=== PATIENT | male | born 1945 | race Caucasian/White ===

== ENCOUNTER 2020-05-06 08:52 | Inpatient (IN) | payer OTHER, MEDICARE, SELFPAY ==
[2020-05-06] VITALS (64 sets, daily range): BP systolic 136–201; BP diastolic 70–143; PULSE 60–122; RESP 10–36; TEMP 36.6; O2SAT 88–98; BMI 35.9
--- NOTE | 2020-05-06 08:58 | XR_ITS ---
WS: [id number] PORTABLE CHEST HISTORY: chest pain COMPARISON: None available. Prior CABG. Hyperinflated lungs. Diffuse coarsened thickened interstitial. No pleural effusion. No dense focal co nsolidation. No pleural effusion or pneumothorax. Cardiac size: Moderately enlarged cardiac silhouette. Mediastinum/Aorta: Mild atherosclerosis aorta. No osseous abnormality seen. XR/XR chest 1V portable [id number] IMPRESSION: 1. Severe diffuse interstitial thickening. No prior studies for comparison. Th justyna changes may all be due to severe pulmonary fibrosis which is chronic. Super imposed edema or only pulmonary congestion within the differential. 2. Marked cardiomegaly.
--- NOTE | 2020-05-06 08:58 | ECG_ITS ---
Measurements Intervals [place] Rate: 69 P: 56 MD: 184 QRS: 50 QRSD: 87 T: 2 QT: 352 QTc: [address] & T-WAVE ABNORMALITY No previous ECG available for comparison Electronically Signed On 05-06-2020 19:28:31 CDT by Juan David Palomino M.D. [id number]
--- NOTE | 2020-05-06 09:01 | W.ED.CHESTPA ---
HPI - Chest Pain General: Chief Complaint: Shortness of Breath/Dyspnea Stated Complaint: cp/sob Time Seen by Provider: 05/06/20 09:01 History of Present Illness: HPI narrative: 75 yo male presents emergency room with complaints of pain in his chest for the last week. Right now he rates it a 7 of 8 at its worst it was a 10 of 10. Worse when he exerts himself particularly by walking on arrival his O2 sat was 99% on room air on 3 L/min he goes up to 99%. He is not use any nitro he does take 2 baby aspirin daily though is not taking any today. His last angiogram was in July 2019 he said he had a stent placed that was in [place] he is not had any angiogram or evaluation locally he does see a local ID clinic but has not seen a sewer and cutter finger buff material in this area. States the pain radiates into his left arm and his left neck when he gets worse he had one episode last week where he had a few a day of loose stools but that resolved with some decw-vta-xenjmpt medications. He denies any fever sweats or chills or productive cough. He relates the pain has been increasing in intensity over the last week. MD complaint: chest pain Pertinent past history: coronary artery disease, prior [place], TOE TRIMMER and CABG Onset (ago): week(s) (1) Timing of current episode: episodic and increasing Prior episodes: Yes Onset: during exertion Pain location: substernal and left chest Pain radiation: left arm and neck Severity: similar to previous episodes Pain scale (0-10): 8 Quality: heaviness, sharp and similar to prior AZ Relieving factors: rest Exacerbating factors: exertion Context: other (Patient reports he recently ran out of 1 of his medications but is not sure the name) Associated symptoms: Reports diaphoresis, dyspnea, nausea and other (1 day of diarrhea); Deny vomiting Treatment prior to arrival: none Review of Systems Const: Reports: diaphoresis ENMT: Denies: throat pain, ear or mastoid pain, nasal discharge or nasal congestion Card: Denies: chest pain, edema, dyspnea on exertion or orthopnea Resp: Reports: dyspnea GI: Reports: nausea; Denies: vomiting : Denies: flank pain, dysuria, urinary frequency or urinary urgency Skin/Breast: Denies: rash or pruritus PFS ED PFSH: Medical History Congestive heart failure Coronary artery disease S/P CABG in 1999 & 6-7 stents since that time Hyperlipidemia Hypertension Tobacco abuse Surgical History History of cataract surgery Hx of CABG 1999, 1 vessel S/P PTCA (percutaneous transluminal coronary angioplasty) Patient reports 6-7 stents in the past. Last was performed in June 2019 in [place] Family History Daughter Hypertension Son Hypertension Denies family history of Dementia Social History Smoking and tobacco status: current every day smoker cigarettes Packs smoked per day: 0.5 Quit status (tobacco): not considering quitting Second hand smoke exposure: No Alcohol intake: never Desire information about alcohol rehabilitation?: No Desire information about substance/drug rehabilitation?: No History of recent travel: No Current gender identity: Male Physical Exam Const: GENERAL APPEARANCE: cooperative and comfortable NUTRITIONAL APPEARANCE: obese morbidly obese ORIENTATION/CONSCIOUSNESS: Yes awake, Yes oriented to person, Yes oriented to place and Yes oriented to time HENMT: COMMON NORMALS: normocephalic, atraumatic, hearing grossly normal bilaterally, external ears normal, EAC's normal, TM's normal bilaterally, Normal nasal mucous membranes and turbinates present, moist oral mucous membranes and oropharynx normal HEAD & SCALP: normocephalic and atraumatic NOSE: Normal nasal mucous membranes and turbinates present EXTERNAL EAR: Yes external ears normal EXTERNAL AUDITORY CANAL: EAC's normal TYMPANIC MEMBRANE: TM's normal bilaterally Eye: COMMON NORMALS: Equal, round and reactive pupils present, EOMs intact bilaterally, conjunctivae normal and no scleral icterus CONJUNCTIVA: Yes conjunctivae normal PUPIL: Yes Equal, round and reactive pupils present Neck/C-Spine: COMMON NORMALS: full ROM, no lymphadenopathy, supple and no JVD Lymph: LYMPHATIC: no lymphadenopathy noted and no lymphedema noted Resp: AUSCULTATION: crackles (At the bases) Laterality: bilateral, wheezes and diminished lung sounds Cardio: COMMON NORMALS: no JVD, regular rate, regular rhythm and No murmurs present (Cardio) RATE: regular rate RHYTHM: regular rhythm GI: COMMON NORMALS: Soft to palpation and No hepatosplenomegaly present AUSCULTATION: Yes normoactive bowel sounds PALPATION: Yes Soft to palpation, No Tenderness to palpation present (GI), No Guarding due to palpation present (GI) and Yes No hepatosplenomegaly present Extremity: COMMON NORMALS: normal to inspection, capillary refill normal, no clubbing, cyanosis or edema, no calf tenderness and no pedal edema Neuro: SENSORIUM/ORIENTATION: Yes oriented to person, Yes oriented to place and Yes oriented to time Skin: COMMON NORMALS: no rashes or lesions noted GENERAL SKIN EXAM: no rashes or lesions noted Course Vital Signs: Vital signs: Vital Signs Temperature 98 F 05/06/20 08:59 Pulse Rate 67 05/06/20 13:40 Respiratory Rate 14 05/06/20 13:40 Blood Pressure 178/104 05/06/20 13:30 Pulse Oximetry 90 05/06/20 13:40 MDM - Chest Pain MDM Narrative: Medical decision making narrative: Discussed with Dr. Mcnally. Given his history of coronary disease and episodes of chest pain will need to be admitted I think also benefit from some diuresis there does appear to be some underlying pulmonary interstitial fibrosis on his chest x-ray he was not able to give me much on history of that I do not think this is a new thing but old records will need to be reviewed. Dr. Mcnally seen the patient will assume care on the inpatient side. Lab Data: Labs: Lab Results 05/06/20 05/06/20 05/06/20 Range/Units 09:10 09:10 09:10 WBC 11.6 H (4.0-10.0) 10^3/ uL RBC 3.79 L (4.1-5.3) 10^6/u L Hgb 11.3 L (11.7-16.6) g/dL Hct 35.2 L (42.0-52.0) % MCV 92.9 (80-94) fL MCH 29.8 (28.0-34.0) pg MCHC 32.1 (30.0-36.0) g/dL RDW 14.4 (12.1-15.1) % Plt Count 293 (130-400) 10^3/c mm MPV 10.7 H (7.4-10.4) fL Neut % (Auto) 73.4 % Lymph % (Auto) 17.4 % [place] % (Auto) 7.7 % Eos % (Auto) 0.7 % Baso % (Auto) 0.4 % Neut # (Auto) 8.5 H (1.8-7.7) 10^3/u L Lymph # (Auto) 2.0 (0.8-4.8) 10^3/u L [place] # (Auto) 0.9 (0.2-0.9) 10^3/u L Eos # (Auto) 0.1 (0.0-0.8) 10^3/u L Baso # (Auto) 0.1 (0.0-0.1) 10^3/u L Nucleated RBC % (a uto) 0 % Nucleated RBCs # 0.0 /100WBC PT (10.5-13.3) SECO NDS INR (0.8-1.2) D-Dimer (0-0.59) ug/mIFE U Specimen Type Sample Site ABG pH (7.35-7.45) ABG pCO2 (35-45) mmHg ABG pO2 (80.0-100.0) mmH g ABG HCO3 (22-26) mmol/L ABG Base Excess (-2.0-2.0) mmol/ L Guillermo Test Hematocrit (42-52) % O2 Delivery Device O2 Liters/Min % FiO2 % Web Design Specialist ID Sodium 141 (136-145) mmol/L Potassium 3.3 L (3.5-5.1) mmol/L Chloride 101 (98-107) mmol/L Carbon Dioxide 29 (22-29) mmol/L Anion Gap 14.3 (5-19) BUN 15 (8-23) mg/dL Creatinine 0.7 (0.7-1.2) mg/dL Glucose 114 (65-115) mg/dL Calculated Osmolal ity 289 (285-295) mOsm/k g Calcium 9.2 (8.5-10.5) mg/dL Total Bilirubin 0.8 (0.15-1.2) mg/dL AST 19 (0-40) U/L ALT 18 (0-41) U/L Alkaline Phosphata se 101 (40-130) IU/L Troponin T Baselin e 24 H (0-15) ng/L Troponin T 120 Min [place] (0-15) ng/L Delta Troponin T (0-10) ABS# NT-Pro-B Natriuret Pep (0-125) pg/mL Total Protein 7.5 (6.6-8.7) g/dL Albumin 4.2 (3.5-5.2) g/dL Globulin 3.3 (1.3-4.6) g/dL TSH (0.27-4.20) uIU/ mL 05/06/20 05/06/20 05/06/20 Range/Units 09:10 09:10 09:10 WBC (4.0-10.0) 10^3/ uL RBC (4.1-5.3) 10^6/u L Hgb (11.7-16.6) g/dL Hct (42.0-52.0) % MCV (80-94) fL MCH (28.0-34.0) pg MCHC (30.0-36.0) g/dL RDW (12.1-15.1) % Plt Count (130-400) 10^3/c mm MPV (7.4-10.4) fL Neut % (Auto) % Lymph % (Auto) % [place] % (Auto) % Eos % (Auto) % Baso % (Auto) % Neut # (Auto) (1.8-7.7) 10^3/u L Lymph # (Auto) (0.8-4.8) 10^3/u L [place] # (Auto) (0.2-0.9) 10^3/u L Eos # (Auto) (0.0-0.8) 10^3/u L Baso # (Auto) (0.0-0.1) 10^3/u L Nucleated RBC % (a uto) % Nucleated RBCs # /100WBC PT 14.70 H (10.5-13.3) SECO NDS INR 1.11 (0.8-1.2) D-Dimer 1.77 H (0-0.59) ug/mIFE U Specimen Type Sample Site ABG pH (7.35-7.45) ABG pCO2 (35-45) mmHg ABG pO2 (80.0-100.0) mmH g ABG HCO3 (22-26) mmol/L ABG Base Excess (-2.0-2.0) mmol/ L Guillermo Test Hematocrit (42-52) % O2 Delivery Device O2 Liters/Min % FiO2 % Web Design Specialist ID Sodium (136-145) mmol/L Potassium (3.5-5.1) mmol/L Chloride (98-107) mmol/L Carbon Dioxide (22-29) mmol/L Anion Gap (5-19) BUN (8-23) mg/dL Creatinine (0.7-1.2) mg/dL Glucose (65-115) mg/dL Calculated Osmolal ity (285-295) mOsm/k g Calcium (8.5-10.5) mg/dL Total Bilirubin (0.15-1.2) mg/dL AST (0-40) U/L ALT (0-41) U/L Alkaline Phosphata se (40-130) IU/L Troponin T Baselin e (0-15) ng/L Troponin T 120 Min [place] (0-15) ng/L Delta Troponin T (0-10) ABS# NT-Pro-B Natriuret Pep 3568 H (0-125) pg/mL Total Protein (6.6-8.7) g/dL Albumin (3.5-5.2) g/dL Globulin (1.3-4.6) g/dL TSH (0.27-4.20) uIU/ mL 05/06/20 05/06/20 05/06/20 Range/Units 09:10 09:53 11:06 WBC (4.0-10.0) 10^3/ uL RBC (4.1-5.3) 10^6/u L Hgb (11.7-16.6) g/dL Hct (42.0-52.0) % MCV (80-94) fL MCH (28.0-34.0) pg MCHC (30.0-36.0) g/dL RDW (12.1-15.1) % Plt Count (130-400) 10^3/c mm MPV (7.4-10.4) fL Neut % (Auto) % Lymph % (Auto) % [place] % (Auto) % Eos % (Auto) % Baso % (Auto) % Neut # (Auto) (1.8-7.7) 10^3/u L Lymph # (Auto) (0.8-4.8) 10^3/u L [place] # (Auto) (0.2-0.9) 10^3/u L Eos # (Auto) (0.0-0.8) 10^3/u L Baso # (Auto) (0.0-0.1) 10^3/u L Nucleated RBC % (a uto) % Nucleated RBCs # /100WBC PT (10.5-13.3) SECO NDS INR (0.8-1.2) D-Dimer (0-0.59) ug/mIFE U Specimen Type Arterial Sample Site Radial, left ABG pH 7.44 (7.35-7.45) ABG pCO2 41.8 (35-45) mmHg ABG pO2 114.0 H (80.0-100.0) mmH g ABG HCO3 28.2 H (22-26) mmol/L ABG Base Excess 3.7 H (-2.0-2.0) mmol/ L Guillermo Test Pos Hematocrit 34.4 L (42-52) % O2 Delivery Device Nc O2 Liters/Min 2.0 % FiO2 28.0 % Web Design Specialist ID cak Sodium (136-145) mmol/L Potassium (3.5-5.1) mmol/L Chloride (98-107) mmol/L Carbon Dioxide (22-29) mmol/L Anion Gap (5-19) BUN (8-23) mg/dL Creatinine (0.7-1.2) mg/dL Glucose (65-115) mg/dL Calculated Osmolal ity (285-295) mOsm/k g Calcium (8.5-10.5) mg/dL Total Bilirubin (0.15-1.2) mg/dL AST (0-40) U/L ALT (0-41) U/L Alkaline Phosphata se (40-130) IU/L Troponin T Baselin e (0-15) ng/L Troponin T 120 Min [place] 23.33 H (0-15) ng/L Delta Troponin T -0.67 L (0-10) ABS# NT-Pro-B Natriuret Pep (0-125) pg/mL Total Protein (6.6-8.7) g/dL Albumin (3.5-5.2) g/dL Globulin (1.3-4.6) g/dL TSH 1.82 (0.27-4.20) uIU/ mL Discharge Plan Discharge Patient Disposition: Admitted As Inpatient Admit Provider: Sherine Mcnally Clinical Impression: Coronary artery disease, Chest pain, Congestive heart failure, Hyperlipidemia, Tobacco abuse, Interstitial pulmonary fibrosis Condition: Stable Discharge Date/Time: 05/06/20 12:30 Coding Level of Care Code ED Guidance Adviser for Chg Fwd Exam Comprehensive
[2020-05-06 09:18] LABS: Basophils # 0.1 10^3/uL (0.0-0.1); Basophils % 0.4 %; Eosinophils # 0.1 10^3/uL (0.0-0.8); Eosinophils % 0.7 %; Hematocrit 35.2 % (42.0-52.0); Hemoglobin 11.3 g/dL (11.7-16.6); Lymphocytes % 17.4 %; Mean Corpuscular HGB Conc 32.1 g/dL (30.0-36.0); Mean Corpuscular Hemoglobin 29.8 pg (28.0-34.0); Mean Corpuscular Volume 92.9 fL (80-94); Mean Platelet Volume 10.7 fL (7.4-10.4); Monocytes # 0.9 10^3/uL (0.2-0.9); Monocytes % 7.7 %; Neutrophils # 8.5 10^3/uL (1.8-7.7); Neutrophils % 73.4 %; Nucleated Red Blood Cells % 0 %; Platelet Count 293 10^3/cmm (130-400); Red Blood Count 3.79 10^6/uL (4.1-5.3); Red Cell Distribution Width 14.4 % (12.1-15.1); White Blood Count 11.6 10^3/uL (4.0-10.0)
[2020-05-06 09:33] LABS: Alanine Aminotransferase 18 U/L (0-41); Albumin Level 4.2 g/dL (3.5-5.2); Alkaline Phosphatase 101 IU/L (40-130); Anion Gap 14.3 (5-19); Aspartate Amino Transferase 19 U/L (0-40); Blood Urea Nitrogen 15 mg/dL (8-23); Calcium 9.2 mg/dL (8.5-10.5); Carbon Dioxide 29 mmol/L (22-29); Chloride 101 mmol/L (98-107); Creatinine Clr Calc Pharmacy 103.7095; Globulin 3.3 g/dL (1.3-4.6); Glucose 114 mg/dL (65-115); Osmolality Calculated 289 mOsm/kg (285-295); Potassium 3.3 mmol/L (3.5-5.1); Sodium 141 mmol/L (136-145); Total Bilirubin 0.8 mg/dL (0.15-1.2); Total Protein 7.5 g/dL (6.6-8.7)
[2020-05-06 09:34] LABS: Troponin(5th) Baseline 24 ng/L (0-15)
[2020-05-06 10:04] LABS: ABG PCO2 41.8 mmHg (35-45); ABG PH Result 7.44 (7.35-7.45); Arterial Blood Gas Hematocrit 34.4 % (42-52); Base Excess ABG 3.7 mmol/L (-2.0-2.0); Blood Gas Allen Test Pos; Blood Gas Sample Site Radial, left; Blood Gas Sample Type Arterial; HCO3 ABG 28.2 mmol/L (22-26); Oxygen Device NC
[2020-05-06] MEDS: FUROsemide 10 mg/mL SDV 10mL 60 MG IVP (10:15)
[2020-05-06 10:16] LABS: NT Pro B Type Natriuretic Pept 3568 pg/mL (0-125)
[2020-05-06] MEDS: nitroglycerin 1 gm/inch oint Pkt 1 INCH TOPICAL (10:16)
[2020-05-06] MEDS: aspirin 325 mg Tablet PO (10:16)
[2020-05-06 10:55] LABS: D Dimer 1.77 ug/mIFEU (0-0.59)
--- NOTE | 2020-05-06 10:58 | ECG_ITS ---
Measurements Intervals [place] Rate: 69 P: 63 AL: 174 QRS: 44 QRSD: 98 T: -14 QT: 415 QTc: 446 SINUS RHYTHM WITH OCCASIONAL VENTRICULAR PREMATURE COMPLEXES NONSPECIFIC ST & T-WAVE ABNORMALITY No previous ECG available for comparison Electronically Signed On 05-06-2020 19:31:02 CDT by Juan David Palomino M.D. [email or web address]
--- NOTE | 2020-05-06 11:02 | PM.HP ---
Providers/Chief Complaint Admitting Physician: Sherine Mcnally DO Chief Complaint: cp/sob History of Present Illness Yohannes La is a 75 year old male with a past medical history of hypertension and coronary artery disease as well as tobacco use that presented to the emergency department today for chest pain and shortness of breath. Patient stated that he has been having symptoms that have been progressively worsening over the past 1 week. Patient reports that he is having increasing dyspnea on exertion and worsening chest pain with any type of exertion. He stated that he has been unable to walk throughout his home without having to stop to take a break. Typically when he stops to take a break he will have improvement in symptoms. He reports having a history of coronary artery disease with a one-vessel bypass in 1999 followed by approximately 6-7 stents since that time. Reported that his last stent was placed in May or June 2019 in a hospital in [place]. Patient reports that he recently moved here in November, has now set up with a primary care provider but does not have any cardiology follow-up. Patient denies any fevers at home. He reports that he has been out and about in his community but has not had any known exposure to anyone positive for CO VID-19. He reports that he has a chronic cough and sputum production due to smoking, cough and sputum production have been roughly the same when compared to his baseline. Patient was seen and evaluated in the emergency department noted to have concern for chest pain with a history of coronary artery disease and some concern for congestive heart failure. Patient denies any history of congestive heart failure diagnosis in the past. He denies any history of interstitial pulmonary fibrosis. He was given Lasix x1 and started on Nitropaste. At time of my exam he reports that he is chest pain-free. Called and discussed with patient's daughter and made her aware of patient's admission, Kecia Carmichael, she reported that patient has been having symptoms for approximately 1 week. She verbalized understanding of plan of care and agreed with plan. Review of Systems Const: Denies: fever(s) or chills Eyes: Denies: change in vision ENMT: Denies: nasal congestion Card: Reports: chest pain; Denies: palpitations or edema Resp: Reports: dyspnea and productive cough; Denies: hemoptysis GI: Denies: abdominal pain, nausea, vomiting, diarrhea, constipation, hematochezia or melena : Denies: dysuria or hematuria Musc: Denies: extremity pain or muscle cramps Skin/Breast: Denies: rash or new lesions Neuro: Denies: headache(s) or dizziness Psych: Denies: anxiety or depression Endo: Denies: polyuria or hot flashes Sebastián/Lymph: Denies: easy bruising or easy bleeding Medications/Allergies Home Medications Medication Instructions Recorded Confirmed Last Taken Type hydrochlorothiazide 25 mg tablet 25 mg PO DAILY 02/05/20 02/29/20 Unknown History lisinopril 40 mg tablet 40 mg PO DAILY 02/05/20 02/29/20 Unknown History simvastatin 80 mg tablet 40 mg PO DAILY tab 02/05/20 02/29/20 Unknown History albuterol sulfate [ProAir HFA] 1 inh INHALATION QID PRN 05/06/20 05/06/20 Unknown History aspirin 81 mg PO DAILY 05/06/20 05/06/20 05/06/20 History budesonide-formoterol [Symbicort] 2 puff INHALATION BID 05/06/20 05/06/20 Unknown History carvedilol 25 mg PO BID 05/06/20 05/06/20 05/06/20 History clopidogrel [Plavix] 75 mg PO DAILY 05/06/20 05/06/20 05/06/20 History hydralazine 25 mg PO TID 05/06/20 05/06/20 05/06/20 History omeprazole 40 mg PO DAILY 05/06/20 05/06/20 05/06/20 History sertraline 100 mg PO DAILY 05/06/20 05/06/20 05/06/20 History vit C,O-Mn-ycrig-lutein-zeaxan 1 tab PO BID 05/06/20 05/06/20 05/06/20 History [PreserVision AREDS-2] Allergies Allergy/AdvReac Type Severity Reaction Status Date / Time No Known Allergies Allergy Verified 05/06/20 09:03 PFSH Acute PFSH: Medical History Congestive heart failure Coronary artery disease S/P CABG in 1999 & 6-7 stents since that time Hyperlipidemia Hypertension Tobacco abuse Surgical History History of cataract surgery Hx of CABG 1999, 1 vessel S/P PTCA (percutaneous transluminal coronary angioplasty) Patient reports 6-7 stents in the past. Last was performed in June 2019 in [place] Family History Daughter Hypertension Son Hypertension Denies family history of Dementia Social History Smoking and tobacco status: current every day smoker cigarettes Packs smoked per day: 0.5 Quit status (tobacco): not considering quitting Second hand smoke exposure: No Alcohol intake: never Desire information about alcohol rehabilitation?: No Desire information about substance/drug rehabilitation?: No History of recent travel: No Current gender identity: Male Vitals/I&O/Wt Last Vital Signs Temp 98 F 05/06/20 08:59 Pulse 71 05/06/20 08:59 Resp 32 H 05/06/20 08:59 BP 177/95 05/06/20 08:59 Pulse Ox 93 05/06/20 08:59 Weight last 48 hrs Weight 113.398 kg Physical Exam Const: COMMON NORMALS: patient oriented x3 and alert GENERAL APPEARANCE: cooperative ORIENTATION/CONSCIOUSNESS: Yes awake, Yes oriented to person, Yes oriented to place and Yes oriented to time HENMT: COMMON NORMALS: normocephalic and atraumatic HEAD & SCALP: normocephalic and atraumatic Eye: COMMON NORMALS: Equal, round and reactive pupils present PUPIL: Yes Equal, round and reactive pupils present Neck/C-Spine: COMMON NORMALS: supple GENERAL: Yes normal visual inspection Resp: COMMON NORMALS: normal respiratory effort EFFORT & INSPECTION: Yes able to speak in complete sentences OTHER: bibasilar crackles Cardio: COMMON NORMALS: regular rate, regular rhythm and No murmurs present (Cardio) RATE: regular rate RHYTHM: regular rhythm GI: COMMON NORMALS: Soft to palpation and non-tender INSPECTION: No abdominal distension AUSCULTATION: Yes normoactive bowel sounds PALPATION: Yes Soft to palpation : COMMON NORMALS: Yes no CVA tenderness Back/Pelvis: COMMON NORMALS: no CVA tenderness Extremity: COMMON NORMALS: no clubbing, cyanosis or edema and no calf tenderness Neuro: COMMON NORMALS: patient oriented x3, CN's II-XII intact bilaterally, moves all extremities and no focal motor deficits SENSORIUM/ORIENTATION: Yes alert, Yes oriented to person, Yes oriented to place and Yes oriented to time SPEECH: speech normal Psych: COMMON NORMALS: mental status grossly normal and cooperative Skin: COMMON NORMALS: no rashes or lesions noted GENERAL SKIN EXAM: no rashes or lesions noted Data : 05/06/20 09:10 05/06/20 09:10 A&P Assessment and plan (1) Chest pain: Patient has typical anginal symptoms. Will discuss with business management consultant on-call Patient has a history of coronary artery disease status post one-vessel CABG and multiple stents in the past. Last coronary angiogram was in May or June 2019 in [place]. Will enter for record request. Serial EKG and troponin. Monitor closely on telemetry. Sublingual nitro as needed for chest pain We will continue to monitor result from second troponin if significant delta will discuss with cardiology for cardiac cath. ALAN as needed for pain Patient also has significant fluid overload on chest x-ray which could be contributing to some of his symptoms. Given IV Lasix in the ED. Echocardiogram ordered for further evaluation and will continue with diuresis. Status: Acute (2) Congestive heart failure: Unspecified No prior diagnosis of congestive heart failure, however patient appears to be volume overloaded at time of evaluation in the ED, given 60 mg of Lasix IV x1 and is already had greater than 500 mL of urine output Will continue with diuresis Strict intake and output as well as daily weights Echocardiogram ordered for further evaluation Patient already on LUCRETIA inhibitor, continue home beta ariel Status: Acute (3) Coronary artery disease: Status post CABG and reported history of multiple stents placed in the past. Further plan as above. Status: Acute (4) Hyperlipidemia: Would recommend increasing to high intensity statin Status: Acute (5) Tobacco abuse: Strongly encourage cessation, nicotine patch as needed Status: Acute Additional A&P Information Cough/shortness of breath/bilateral findings on CXR: patient was tested for COVID-19 while in the ED. remains on droplet and contact precautions until results return. No personal contact with positive individual however patient has been out and about in the community. Would recommend outpatient pulmonary function testing as likely patient has underlying COPD. Also concern based on chest x-ray for some interstitial pulmonary fibrosis. D-dimer ordered for further evaluation, consider CTA of the chest if indicated. Continue oxygen per protocol, respiratory therapy to assess and treat, goal oxygen saturation of 90 to 92%. Obstructive sleep apnea: Continue home CPAP Obesity Testing for CO VID-19: Remains on droplet and isolation precautions, infection prevention department consulted while patient was in the ED. DVT ppx: Lovenox Diet: Cardiac, NPO at midnight Code status: FUll code Attestations Medical Necessity Statement*: Placement to observation for further evaluation due to dyspnea and chest pain. Expected stay less than 2 midnights Coding Level of Care Code Acute Unemployment Inspector for Seema Quach Diagnoses Chest pain R07.9 Congestive heart failure I50.9 Coronary artery disease I25.10 Hyperlipidemia E78.5 Tobacco abuse Z72.0
--- NOTE | 2020-05-06 11:14 | PC.NURSE ---
pt sitting up in bed at this time.
[2020-05-06 11:33] LABS: Troponin 5 2HR 23.33 ng/L (0-15)
[2020-05-06 11:36] LABS: Troponin 5 2HR Delta -0.67 ABS# (0-10)
--- NOTE | 2020-05-06 12:40 | PC.NURSE ---
COVID SWAB COVID Swab taken and COVID precautions initiated.
[2020-05-06 13:26] LABS: INR 1.11 (0.8-1.2)
[2020-05-06 13:52] LABS: Thyroid Stimulating Hormone 1.82 uIU/mL (0.27-4.20)
[2020-05-06] MEDS: hyDRALAzine 25 mg Tablet PO ×2 (14:02→21:40)
[2020-05-06] MEDS: nicotine 21 mg Patch 1 PATCH TRANSDERMA (14:02)
[2020-05-06] MEDS: enoxaparin 40 mg/0.4 mL Syringe SUBCUT (14:02)
--- NOTE | 2020-05-06 14:58 | ECG_ITS ---
Measurements Intervals [place] Rate: 75 P: CO: 0 QRS: 38 QRSD: 90 T: 25 QT: 393 QTc: [address] & T-WAVE ABNORMALITY ABNORMAL RHYTHM ECG No previous ECG available for comparison Electronically Signed On 05-06-2020 19:31:47 CDT by Juan David Palomino M.D. [id number]
[2020-05-06] MEDS: albuterol 8 gm MDI 1 PUFF INHALATION (15:05)
[2020-05-06 16:18] LABS: Troponin 5 6HR 21.77 ng/L (0-15)
[2020-05-06 16:33] LABS: Troponin 5 6HR Delta -2.23 ng/L (0-12)
[2020-05-06] MEDS: carvedilol 25 mg Tablet PO (18:08)
[2020-05-07] VITALS (10 sets, daily range): BP systolic 104–220; BP diastolic 67–110; PULSE 64–86; RESP 16–24; TEMP 36.6–36.8; O2SAT 92–97; BMI 36.9
[2020-05-07 04:42] LABS: Basophils # 0.1 10^3/uL (0.0-0.1); Basophils % 0.5 %; Eosinophils # 0.2 10^3/uL (0.0-0.8); Eosinophils % 1.9 %; Hematocrit 34.7 % (42.0-52.0); Hemoglobin 11.2 g/dL (11.7-16.6); Lymphocytes # 1.9 10^3/uL (0.8-4.8); Lymphocytes % 16.8 %; Mean Corpuscular HGB Conc 32.3 g/dL (30.0-36.0); Mean Corpuscular Hemoglobin 29.9 pg (28.0-34.0); Mean Corpuscular Volume 92.5 fL (80-94); Monocytes # 0.9 10^3/uL (0.2-0.9); Monocytes % 8.2 %; Neutrophils # 8.1 10^3/uL (1.8-7.7); Neutrophils % 72.1 %; Nucleated Red Blood Cells % 0 %; Platelet Count 314 10^3/cmm (130-400); Red Blood Count 3.75 10^6/uL (4.1-5.3); Red Cell Distribution Width 14.3 % (12.1-15.1); White Blood Count 11.3 10^3/uL (4.0-10.0)
[2020-05-07 05:05] LABS: Chol HDL Ratio 3.45 mg/dL (1.0-5.00); Cholesterol 107 mg/dL (0-200); HDL Cholesterol 31 mg/dL (60-100); LDL Cholesterol Calculated 58 mg/dL (50-129); LDL HDL Ratio 1.87 RATIO (0.00-3.22); Triglycerides 90 mg/dL (0-150)
[2020-05-07 05:06] LABS: Anion Gap 17.2 (5-19); Blood Urea Nitrogen 13 mg/dL (8-23); Calcium 10.1 mg/dL (8.5-10.5); Carbon Dioxide 29 mmol/L (22-29); Chloride 99 mmol/L (98-107); Glucose 107 mg/dL (65-115); Osmolality Calculated 291 mOsm/kg (285-295); Potassium 3.2 mmol/L (3.5-5.1); Sodium 142 mmol/L (136-145)
--- NOTE | 2020-05-07 06:11 | PC.NURSE ---
End of shift: Patient had a uneventful shift. Patient was unable to get his CPAP due to covid screening results not coming back. Lexiscan scheduled test will be run whenever results are back. Patient rested off and on. Patients vitals have been stable.
--- NOTE | 2020-05-07 07:00 | USCV_ITS ---
Yohannes La Age: 75 Gender: M : 1945 Exam Date: 05/07/2020 15:56 Ordering Phys: Sherine Mcnally DO Technologist: Latasha Moore [place]am [place] [facility] [place] Indication: CAD,CHF BP: 184 / 110 HR: 80 Rhythm: Sinus Technical Quality: Very technically difficult study MEASUREMENTS (Male / Female) Normal Values 2D ECHO LV Diastolic Diameter PLAX 5.4 cm 4.2 - 5.9 / 3.9 - 5.3 cm LV Systolic Diameter PLAX 3.8 cm LV Chamber Size 2.9 cm IVS Diastolic Thickness 1.4 cm 0.6 - 1.0 / 0.6 - 0.9 cm IVS Systolic Thickness 1.4 cm LVPW Diastolic Thickness 2.0 cm 0.6 - 1.0 / 0.6 - 0.9 cm LVPW Systolic Thickness 2.2 cm RV Chamber Size 3.8 cm LVOT Diameter 2.0 cm LV Ejection Fraction 2D Teich 54.9 % LV Ejection Fraction MOD 2C 49.6 % LV Ejection Fraction 2C AL 53.9 % LA Diameter 6.2 cm LA Width 4.2 cm LA Height 6.3 cm RA Width 3.2 cm RA Height 4.6 cm M-MODE LV Diastolic Diameter MM 6.3 cm 4.2 - 5.9 / 3.9 - 5.3 cm LV Systolic Diameter MM 4.3 cm LV Ejection Fraction MM Teich 58.3 % IVS Diastolic Thickness MM 1.1 cm 0.6 - 1.0 / 0.6 - 0.9 cm IVS Systolic Thickness MM 1.4 cm LVPW Diastolic Thickness MM 1.1 cm 0.6 - 1.0 / 0.6 - 0.9 cm LVPW Systolic Thickness MM 1.5 cm Aortic Annulus Diameter 2.9 cm LA Ao Ratio MM 2.2 MV E Point Septal Separation 0.8 cm DOPPLER AV Peak Velocity 150.0 cm/s LVOT Peak Velocity 120.0 cm/s AV Area Cont Eq vti 2.7 cm squared AV Area Cont Eq pk 2.5 cm squared MV Area PHT 2.9 cm squared Mitral E to A Ratio 1.2 MV E' Velocity 11.0 cm/s Mitral E to MV E' Ratio 7.2 Mitral E to LV E' Lateral Ratio 7.8 Mitral E to LV E' Septal Ratio 6.7 TR Peak Velocity 290.0 cm/s TR Peak Gradient 33.6 mmHg Right Atrial Pressure 3.0 mmHg Pulmonary Artery Systolic Pressu 36.6 mmHg PV Peak Velocity 64.0 cm/s RV Acceleration Time 0.2 s RV Ejection Time 0.4 s RV AcT/ET 0.5 FINDINGS Left Ventricle The ventricle is poorly seen. There is likely normal left ventricular size and function. Wall motion disturbances cannot be determined. No obvious wall motion disturbances. Grade 1 diastolic dysfunction. Ejection fraction roughly estimated 55 to 60%. Right Ventricle Normal right ventricular size and systolic function. Mild pulmonary hypertension, RVSP 36.6 mmHg. Right Atrium Mildly increased right atrial size. Left Atrium Moderately increased left atrial size. Mitral Valve Poorly seen. No obvious mitral regurgitation. Aortic Valve Poorly seen. No aortic stenosis. No obvious aortic insufficiency. Tricuspid Valve Poorly seen. Mild tricuspid regurgitation. Pulmonic Valve Pulmonic valve not well visualized. Pericardium Normal pericardium without effusion. Aorta Normal ascending aorta dimension. CONCLUSIONS The ventricle is poorly seen. There is likely normal left ventricular size and function. Wall motion disturbances cannot be determined. No obvious wall motion disturbances. Grade 1 diastolic dysfunction. Ejection fraction roughly estimated 55 to 60%. Normal right ventricular size and systolic function. Mild pulmonary hypertension, RVSP 36.6 mmHg. Mildly increased right atrial size. Moderately increased left atrial size. There are no prior echocardiogram studies to compare. Dr. Tam Cornell MD (Electronically Signed) Final Date: 08 May 2020 06:56 S
--- NOTE | 2020-05-07 07:49 | PC.NURSE ---
ORDERED TO GIVE HYDRALAZINE, POTASSIUM, LASIX, LISINOPRIL AND HCTZ THIS MORNING PER DR PINEDA FOR INCREASED BLOOD PRESSURE.
[2020-05-07] MEDS: FUROsemide 10 mg/mL SDV 4mL 60 MG IVP (07:56)
[2020-05-07] MEDS: hyDRALAzine 25 mg Tablet PO ×3 (07:57→21:18)
[2020-05-07] MEDS: hydroCHLOROthiazide 25 mg Tablet PO (07:57)
[2020-05-07] MEDS: lisinopril 20 mg Tablet 40 MG PO (07:57)
--- NOTE | 2020-05-07 08:00 | CTR_ITS ---
PROCEDURE INFORMATION: Exam: CT Angiography Chest With Contrast Exam date and time: 05/07/2020 7:09 AM Age: 75 years old Clinical indication: Shortness of breath; Chest pain; Prior surgery; Surgery type: Open heart; Additional info: Chest pain, dyspnea, cad, elevated d-dimer, hypoxia TECHNIQUE: Imaging protocol: Computed tomographic angiography of the chest with intravenous contrast. 3D rendering: MIP and/or 3D reconstructed images were created by the technologist. Radiation optimization: All CT scans at this facility use at least one of these dose optimization techniques: automated exposure control; mA and/or kV adjustment per patient size (includes targeted exams where dose is matched to clinical indication); or iterative reconstruction. Contrast material: OMNI 350; Contrast volume: 95 ml; Contrast route: IV; COMPARISON: CR XR chest 1V portable [id number] 05/07/2020 10:44 AM RADIATION DOSE METRICS: Total DLP: 637.44 mGy-cm FINDINGS: Pulmonary arteries: No visible pulmonary embolism/pulmonary arterial thrombus. Aorta: The thoracic aorta is nonaneurysmal. Moderate arterial sclerotic disease. Lungs: Pulmonary fibrosis with peripheral acinar emphysema. COPD/chronic bronchitis. Pleural space: Scant bilateral pleural effusions. Heart: Status post sternotomy chest and CABG. Cardiac structures and configuration with coronary artery disease. Cardiomegaly. Evidence of mild passive congestive heart failure. Coronary artery stent. No visible pericardial effusion. Lymph nodes: Mildly prominent mediastinal and hilar lymph nodes. Bones/joints: Age-appropriate degenerative disease and degenerative disc disease. No visible acute osseous abnormality. Spondylosis deformans. Soft tissues: Unremarkable. Other findings: A total of 959 images were acquired that will require assessment and characterization. CT/CT angio chest PE protcl [id number] IMPRESSION: 1. No visible pulmonary embolism/pulmonary arterial thrombus. 2. Other nonurgent, nonemergent, chronic, and age related findings discussed in text above. Radiation Dose CTDIVOL = (mGy): DLP = 637.44 (mGy-cm)
[2020-05-07] MEDS: atorvastatin 40 mg Tablet 20 MG PO (09:36)
[2020-05-07] MEDS: pantoprazole DR 40 mg Tablet PO (09:36)
[2020-05-07] MEDS: sertraline 100 mg Tablet PO (09:36)
[2020-05-07] MEDS: clopidogrel 75 mg Tablet PO (09:36)
[2020-05-07] MEDS: aspirin 81 mg Chew Tablet PO (09:36)
--- NOTE | 2020-05-07 09:36 | XRR_ITS ---
PROCEDURE INFORMATION: Exam: XR Chest, 1 View Exam date and time: 05/07/2020 10:36 AM Age: 75 years old Clinical indication: Cough and shortness of breath; Additional info: Hypoxia, tachypnea, chest pain, cough x 1 week TECHNIQUE: Imaging protocol: XR of the chest Views: 1 view. COMPARISON: No relevant prior studies available. FINDINGS: Lungs: Diffuse prominence of the interstitium is noted, likely due to chronic lung disease. No focal consolidation is seen. Pleural space: Unremarkable. No pleural effusion. No pneumothorax. Heart/Mediastinum: The cardiac silhouette is mildly enlarged, likely due to underlying cardiomegaly. Vasculature: Atherosclerotic calcifications are noted within the aortic arch. Bones/joints: The patient is status post sternotomy. XR/XR chest 1V portable [id number] IMPRESSION: Diffuse prominence of the interstitium is noted, likely due to chronic lung disease. No focal consolidation is seen.
--- NOTE | 2020-05-07 09:46 | PC.NURSE ---
WILL ADMINISTER COREG AFTER PATIENT HAS HAD STRESS TEST, WHICH WILL TAKE PLACE AFTER COVID TESTING RESULTS ARE RECEIVED. DR. PINEDA IS AWARE.
[2020-05-07] MEDS: hyDRALAzine 20 mg/mL INJ 1 mL 10 MG IVP (10:22)
--- NOTE | 2020-05-07 11:04 | PC.CHAP ---
Pastoral Care Encounter/Spiritual Assessment Type of Contact [] Declined in store marketer visit [] Patient/Family/Request visit [] Outpatient visit [] Follow-up visit [] Physician referral [] Code/Alert [] Routine visit [] Staff referral [] Actively dying [] Patient sleeping [] Family support [] [] Out of room [] Palliative care [] [] Receiving care in room [] Pre-surgical visit [] Trauma [] Long length of stay [] ICU visit [X] Other: COVID 19 test Relational/Emotional Strength [] Patient feels connected with others/family/visitors/staff [] Distress [] Loneliness/isolation [] Abandonment Spirituality of Patient [] Person of Morena [] Attends Buddhism of their Morena [] Believes in Prayer [] Reads Bible or Uatsdin materials [] There are Spiritual issues to be addressed Career Development Director Interventions [] Prayer [] Active listening [] Non-anxious presence [] Spiritual/emotional support [] Crisis/trauma care [] Spiritual counseling [] Bereavement support [] Provided bereavement packet [] Provided Bible/devotional materials [] Provided toy/stuffed animal, coloring book to patient or family member [] Provided Communion [] Anointing/[place] [] Salvation [] Completed spiritual assessment [] Other: Impact on Illness or Injury [] Angry [] Fearful [] Anxious [] Often cries [] Exhaustion [] Unable to work [] Unable to attend islam [] Unable to walk/stand [] Unable to read [] Unable to drive [] Unable to eat/drink [] Unable to sleep [] Unable to be with family [] Patient intubated [] Other: Summary COVID 19 test Time spent with patient 5 mins
--- NOTE | 2020-05-07 11:52 | P.PN_ITS ---
Subjective Subjective: Interval history: Patient standing up at the side of bed at time of exam this morning. He reports that he continues to have dyspnea on exertion and occasional chest pressure on exertion. Discussed with patient pending [place] VID-19 testing and need for continued diuresis. Concern for congestive heart failure. Also with his known coronary artery disease discussed the recom mendation for stress testing. Patient verbalized understanding and agreed with plan. Vitals/I&O/Wt Last Vital Signs Temp 98.2 F 05/07/20 07:14 Pulse 75 05/07/20 11:43 Resp 16 05/07/20 11:43 BP 165/80 05/07/20 11:43 Pulse Ox 93 05/07/20 11:43 05/06/20 05/07/20 05/07/20 22:59 06:59 14:59 Intake Total 120 / 120 300 / 420 Output Total 200 / 200 2600 / 2600 Balance 120 / 120 100 / 220 -2600 / -2600 Weight last 48 hrs Weight 116.687 kg Weight 113.398 kg Physical Exam Const: COMMON NORMALS: patient oriented x3 and alert GENERAL APPEARANCE: cooperative ORIENTATION/CONSCIOUSNESS: Yes awake, Yes oriented to person, Yes oriented to place and Yes oriented to time HENMT: COMMON NORMALS: normocephalic and atraumatic HEAD & SCALP: normocephalic and atraumatic Eye: COMMON NORMALS: Equal, round and reactive pupils present PUPIL: Yes Equal, round and reactive pupils present Neck/C-Spine: COMMON NORMALS: supple GENERAL: Yes normal visual inspection Resp: COMMON NORMALS: normal respiratory effort EFFORT & INSPECTION: Yes able to speak in complete sentences OTHER: bibasilar crackles have improved, no wheezing or rhonchi Cardio: COMMON NORMALS: regular rate, regular rhythm and No murmurs present (Cardio) RATE: regular rate RHYTHM: regular rhythm GI: COMMON NORMALS: Soft to palpation and non-tender INSPECTION: No abdominal distension AUSCULTATION: Yes normoactive bowel sounds PALPATION: Yes Soft to palpation Extremity: COMMON NORMALS: no clubbing, cyanosis or edema and no calf tenderness Neuro: COMMON NORMALS: patient oriented x3, CN's II-XII intact bilaterally, moves all extremities and no focal motor deficits SENSORIUM/ORIENTATION: Yes alert, Yes oriented to person, Yes oriented to place and Yes oriented to time SPEECH: speech normal Psych: COMMON NORMALS: mental status grossly normal and cooperative Skin: COMMON NORMALS: no rashes or lesions noted GENERAL SKIN EXAM: no rashes or lesions noted Data : 05/07/20 04:05 05/07/20 04:05 A&P Assessment and plan (1) Chest pain: Patient has typical anginal symptoms. Awaiting records from outside facility. Discussed with bridge leverman and due to no troponin leak will continue with plan for stress test Patient has a history of coronary artery disease status post one-vessel CABG and multiple stents in the past. Last coronary angiogram was in May or June 2019 in [place]. Telemetry ALAN as needed for pain ECHO pending Status: Acute (2) Congestive heart failure: Unspecified No prior diagnosis of congestive heart failure, however patient appears to be volume overloaded continue with IV Lasix daily Strict intake and output as well as daily weights Echocardiogram pending Patient already on LUCRETIA inhibitor, continue home beta ariel Status: Acute (3) Coronary artery disease: Status post CABG and reported history of multiple stents placed in the past. Further plan as above. Status: Acute (4) Hyperlipidemia: Would recommend increasing to high intensity statin Status: Acute (5) Tobacco abuse: Strongly encourage cessation, nicotine patch as needed Status: Acute Additional A&P Information New onset atrial fibrillation: Paroxysmal afib, now in NSR. Will increase to full dose anticoagulation. continue home coreg. Rate controlled. ECHO pending Hypertension: Continue with diuresis, Lasix. Continue with Coreg, hydralazine, hydrochlorothiazide, lisinopril. Consider addition of Aldactone or amlodipine if indicated Cough/shortness of breath/bilateral findings on CXR: patient was tested for COVID-19, testing pending Obstructive sleep apnea: Continue home CPAP Obesity Testing for CO VID-19: Remains on droplet and isolation precautions, infection prevention department consulted while patient was in the ED. DVT ppx: Lovenox Diet: Cardiac, NPO at midnight Code status: FUll code Attestations Medical Necessity Statement*: Patient requires further hospitalization due to continued chest pain and fluid overload with concern for CHF exacerbation. Coding Level of Care Code Acute Candy Separator Enrobing for Chg Fwd Exam Comprehensive Diagnoses Chest pain R07.9 Congestive heart failure I50.9 Coronary artery disease I25.10 Hyperlipidemia E78.5 Tobacco abuse Z72.0
[2020-05-07] MEDS: enoxaparin 120 mg/0.8 mL Syringe SUBCUT (13:12)
[2020-05-07 16:04] LABS: Coronavirus Lab Test PTC Negative
--- NOTE | 2020-05-07 17:01 | PC.NURSE ---
NOTIFIED BY DR. PINEDA THAT THE PATIENT'S COVID TEST IS NEGATIVE. ISOLATION REMOVED FROM ROOM.
--- NOTE | 2020-05-07 17:33 | PC.NURSE ---
DAUGHTER, YOANA, NOTIFIED OF PATIENT'S NEGATIVE COVID TEST.
[2020-05-07] MEDS: carvedilol 25 mg Tablet PO (17:45)
[2020-05-07] MEDS: iohexol 350 mg/mL 100 mL Btl IV (18:06)
--- NOTE | 2020-05-07 18:59 | PC.NURSE ---
Patient is not complaining of pain or any other issues at this time. Patient has been educated to use his urinal in order for us to measure output and verbalized understanding. Patient has call light within reach. VSS. Will continue to monitor.
[2020-05-08] VITALS (9 sets, daily range): BP systolic 116–194; BP diastolic 53–92; PULSE 68–80; RESP 17–25; TEMP 36.3–36.8; O2SAT 92–96
--- NOTE | 2020-05-08 | NMCV_ITS ---
NM winsome perf SPECT r/s* [id number] Yohannes La Age: 75 Gender: M : 1945 Exam Date: 05/08/2020 07:37 Ordering Phys: Sherine Mcnally DO Technologist: KRISTINA Brooks Exam Location: [facility] Indications: Chest pain, CABG STRESS TEST [facility] IMAGE PROTOCOL Rest/Stress 1 Lexiscan Day Radiopharmaceutical Dose (mCi) Administration Site Administered by Rest: Tc-99m 11.0 IV KRISTINA Mart Sestamibi Stress:Tc-99m 32.8 IV KRISTINA Brooks Sestamiedi Rest: 08-May-2020 60 Discovery 630 Stress: 08-May-2020 30 Discovery 630 0.4mg Lexiscan. Supine position only as patient was unable to lay prone. SPECT RESULTS Technical Quality: Excellent Raw Data Analysis: Normal Image Corrections: No attenuation or motion correction applied Summed Stress Score: 2 Summed Rest Score: 4 Summed Difference Score: 1 PERFUSION FINDINGS Medium-sized area of patchy decreased tracer uptake noted in basal to mid inferior inferolateral, inferoapical wall of the left ventricle on the rest images which improved significantly over stress images suggestive of artifact. Medium-sized area of basal to mid anterolateral wall reduce uptake of tracer noted on the rest images improved on stress images suggestive of artifact. FUNCTIONAL RESULTS (calculated via Gated SPECT) Stress Image LV EF (%): 63 Stress EDV (mL):141 TID: 1.01 Stress ESV (mL):52 Rest Image LV EF (%): 63 FUNCTIONAL FINDINGS: There is normal left ventricular systolic function. IMPRESSIONS Myocardial perfusion imaging is normal and low probability for obstructive coronary artery disease. EKG segment will be documented separately. Juan David Palomino MD (Electronically Signed) Final Date: 08 May 2020 16:04 S
[2020-05-08] MEDS: enoxaparin 120 mg/0.8 mL Syringe SUBCUT ×2 (00:27→12:58)
--- NOTE | 2020-05-08 03:30 | PC.NURSE ---
Patient states I wear a machine at home when I sleep due to sleep apnea. Patient is currently wearing 5 L oxymask while he sleeps and oxygen saturation is staying WNL when on. Patient does not wear any oxygen while awake
[2020-05-08 04:48] LABS: Basophils # 0.1 10^3/uL (0.0-0.1); Basophils % 0.5 %; Eosinophils # 0.2 10^3/uL (0.0-0.8); Eosinophils % 1.9 %; Hematocrit 37.4 % (42.0-52.0); Hemoglobin 12.3 g/dL (11.7-16.6); Lymphocytes # 2.3 10^3/uL (0.8-4.8); Lymphocytes % 21.1 %; Mean Corpuscular HGB Conc 32.9 g/dL (30.0-36.0); Mean Corpuscular Hemoglobin 30.7 pg (28.0-34.0); Mean Corpuscular Volume 93.3 fL (80-94); Mean Platelet Volume 10.9 fL (7.4-10.4); Monocytes # 1.1 10^3/uL (0.2-0.9); Neutrophils # 7.3 10^3/uL (1.8-7.7); Neutrophils % 65.9 %; Nucleated Red Blood Cells % 0 %; Platelet Count 330 10^3/cmm (130-400); Red Blood Count 4.01 10^6/uL (4.1-5.3); Red Cell Distribution Width 14.2 % (12.1-15.1); White Blood Count 11.1 10^3/uL (4.0-10.0)
[2020-05-08 05:09] LABS: Blood Urea Nitrogen 16 mg/dL (8-23); Carbon Dioxide 33 mmol/L (22-29); Chloride 98 mmol/L (98-107); Glucose 109 mg/dL (65-115); Osmolality Calculated 293 mOsm/kg (285-295); Sodium 143 mmol/L (136-145)
--- NOTE | 2020-05-08 05:18 | PC.NURSE ---
Patient had an uneventful night. Patient had to be reminded a couple of times to put his oxymask back on due to accidentally pulling it off when he slept. Patient does not have any complaints at this time. Call light within reach.
--- NOTE | 2020-05-08 06:00 | ECG_ITS ---
NAME OF STUDY: LEXISCAN SESTAMIBI STRESS TEST INDICATION: Chest Pain; Coronary Artery Disease PROCEDURE: At the baseline, the EKG revealed atrial fibrillation with controlled ventricular response rate. Diffuse nonspecific ST-T changes. Poor R wave progression. The baseline blood pressure was 185/98 mm Hg with a heart rate of 83 beats/min. Lexiscan was infused over a period of 20 seconds. A total of 0.4 milligrams of Lexiscan was infused. The stress phase was continued for a total of 5 minutes. Heart rate at the end of the stress phase was 81 with a blood pressure 161/75. The EKG at the peak infusion revealed some nonspecific ST-T changes. Sestamibi was injected 20 seconds after the Lexiscan infusion. Blood pressure at the end of the recovery phase was 161/75 with a heart rate of 79 per minute. CONCLUSION: 1. No significant EKG changes with the LexiScan infusion 2. No LexiScan induced chest pain or cardiac arrhythmia 3. Normal blood pressure and heart rate response 4. Sestamibi/sestamibi perfusion scan pending; see separate report. Electronically Signed On 05-10-2020 19:43:42 CDT by Dalila Beckwith M.D. [email or web address]
--- NOTE | 2020-05-08 07:16 | PC.NURSE ---
Patient reports that he would like to wait until after he comes back form his stress test to take his furosemide DR wood notified no new instructions received at this time
--- NOTE | 2020-05-08 08:12 | SUR.PREOP ---
Patient reports no pain or discomfort prior to the start of the procedure.
[2020-05-08] MEDS: regadenoson 0.4 Mg/5 ml Syringe IVP (08:19)
--- NOTE | 2020-05-08 09:37 | PC.CHAP ---
Pastoral Care Encounter/Spiritual Assessment Type of Contact [] Declined building specialist visit [] Patient/Family/Request visit [] Outpatient visit [] Follow-up visit [] Physician referral [] Code/Alert [x] Routine visit [] Staff referral [] Actively dying [] Patient sleeping [] Family support [] [x] Out of room [] Palliative care [] [] Receiving care in room [] Pre-surgical visit [] Trauma [] Long length of stay [] ICU visit [] Other: testing Relational/Emotional Strength [] Patient feels connected with others/family/visitors/staff [] Distress [] Loneliness/isolation [] Abandonment Spirituality of Patient [] Person of Morena [] Attends Scientology of their [place] [] Believes in Prayer [] Reads Bible or Temple materials [] There are Spiritual issues to be addressed Doctor Of Nurse Anesthesia Interventions [] Prayer [] Active listening [] Non-anxious presence [] Spiritual/emotional support [] Crisis/trauma care [] Spiritual counseling [] Bereavement support [] Provided bereavement packet [] Provided Bible/devotional materials [] Provided toy/stuffed animal, coloring book to patient or family member [] Provided Communion [] Anointing/[place] [] Salvation [x] Completed spiritual assessment [] Other: Impact on Illness or Injury [] Angry [] Fearful [] Anxious [] Often cries [] Exhaustion [] Unable to work [] Unable to attend sikhism [] Unable to walk/stand [] Unable to read [] Unable to drive [] Unable to eat/drink [] Unable to sleep [] Unable to be with family [] Patient intubated [] Other: Summary Time spent with patient
[2020-05-08] MEDS: sertraline 100 mg Tablet PO (10:12)
[2020-05-08] MEDS: hyDRALAzine 25 mg Tablet PO ×3 (10:13→20:21)
[2020-05-08] MEDS: hydroCHLOROthiazide 25 mg Tablet PO (10:13)
[2020-05-08] MEDS: carvedilol 25 mg Tablet PO ×2 (10:13→17:39)
[2020-05-08] MEDS: pantoprazole DR 40 mg Tablet PO (10:13)
[2020-05-08] MEDS: clopidogrel 75 mg Tablet PO (10:14)
[2020-05-08] MEDS: lisinopril 20 mg Tablet 40 MG PO (10:14)
[2020-05-08] MEDS: atorvastatin 40 mg Tablet 20 MG PO (10:14)
[2020-05-08] MEDS: aspirin 81 mg Chew Tablet PO (10:15)
[2020-05-08] MEDS: FUROsemide 10 mg/mL SDV 4mL 60 MG IVP (10:15)
--- NOTE | 2020-05-08 10:22 | PC.NURSE ---
medication delayed due to patient out of room for stress test
--- NOTE | 2020-05-08 11:04 | PC.NURSE ---
Addendum entered by Paige Black RN 05/08/20 11:08: patient placed on 2L o2 via NC to aide in bringint ot room air instructions to maintain saturations 88-92% RT notified to have c-pap placed at HS Original Note: rounding with Dr Mcnally at this time POC discussed as well as plan for discharge patient verbalized understanding of plan orders recived to hold the 40 mg of potassium ordered daily and give and additional 20 mg now to make a total of 40 mg given
[2020-05-08] MEDS: potassium chloride ER 10 mEq Tablet 20 MEQ PO (11:39)
--- NOTE | 2020-05-08 14:39 | P.PN_ITS ---
Subjective Subjective: Interval history: Patient awake in the room at time of exam earlier today. He reported breathing improved slightly better today. He did state that he experienced some shortness of breath and chest pain at the very beginning of his stress test. Discussed with patient concern for pulmonary fibrosis and recommended further outpatient PFTs and pulmonology follow up, he verbalized understanding. Vitals/I&O/Wt Last Vital Signs Temp 98.3 F 05/08/20 10:54 Pulse 71 05/08/20 10:54 Resp 24 H 05/08/20 10:54 BP 125/67 05/08/20 10:54 Pulse Ox 92 05/08/20 10:54 05/07/20 05/08/20 05/08/20 22:59 06:59 14:59 Intake Total 220 / 460 780 / 1240 240 / 240 Output Total 350 / 2950 150 / 3100 975 / 975 Balance -130 / -2490 630 / -1860 -735 / -735 Weight last 48 hrs Weight 112.899 kg Weight 116.687 kg Physical Exam Const: COMMON NORMALS: patient oriented x3 and alert GENERAL APPEARANCE: cooperative ORIENTATION/CONSCIOUSNESS: Yes awake, Yes oriented to person, Yes oriented to place and Yes oriented to time HENMT: COMMON NORMALS: normocephalic and atraumatic HEAD & SCALP: normocephalic and atraumatic Eye: COMMON NORMALS: Equal, round and reactive pupils present PUPIL: Yes Equal, round and reactive pupils present Neck/C-Spine: COMMON NORMALS: supple GENERAL: Yes normal visual inspection Resp: COMMON NORMALS: normal respiratory effort EFFORT & INSPECTION: Yes able to speak in complete sentences OTHER: Patient had cough that was triggered by inspiration followed by expiratory wheezing that quickly cleared. NO diffuse wheezing or rhonchi Cardio: COMMON NORMALS: regular rate, regular rhythm and No murmurs present (Cardio) RATE: regular rate RHYTHM: regular rhythm GI: COMMON NORMALS: Soft to palpation and non-tender INSPECTION: No abdominal distension AUSCULTATION: Yes normoactive bowel sounds PALPATION: Yes Soft to palpation : COMMON NORMALS: Yes no CVA tenderness BLADDER/KIDNEY EXAM: Yes no CVA tenderness Back/Pelvis: COMMON NORMALS: no CVA tenderness Extremity: COMMON NORMALS: no clubbing, cyanosis or edema and no calf tenderness Neuro: COMMON NORMALS: patient oriented x3, CN's II-XII intact bilaterally, moves all extremities and no focal motor deficits SENSORIUM/ORIENTATION: Yes alert, Yes oriented to person, Yes oriented to place and Yes oriented to time SPEECH: speech normal Psych: COMMON NORMALS: mental status grossly normal and cooperative Skin: COMMON NORMALS: no rashes or lesions noted GENERAL SKIN EXAM: no rashes or lesions noted Data : 05/08/20 04:17 05/08/20 04:17 A&P Assessment and plan (1) Chest pain: Stress test performed today and pending Patient has a history of coronary artery disease status post one-vessel CABG and multiple stents in the past. Last coronary angiogram was in May 2019 in [place]. Telemetry ALAN as needed for pain ECHO with Grade I diastolic dysfunction and LVEF 50-55% Status: Acute (2) Congestive heart failure: Diastolic and pulmonary HTN Transition to oral lasix Strict intake and output as well as daily weights Patient already on LUCRETIA inhibitor, continue home beta ariel Status: Acute (3) Coronary artery disease: Status post CABG and reported history of multiple stents placed in the past. Further plan as above. Status: Acute (4) Hyperlipidemia: Would recommend increasing to high intensity statin Status: Acute (5) Tobacco abuse: Strongly encourage cessation, nicotine patch as needed Status: Acute Additional A&P Information New onset atrial fibrillation: Paroxysmal afib, now in NSR. Will increase to full dose anticoagulation. continue home coreg. Rate controlled. Hypertension: Transition to oral lasix. Continue with Coreg, hydralazine, hydrochlorothiazide, lisinopril. Cough/shortness of breath/bilateral findings on CXR: patient was tested for COVID-19 and returned NEGATIVE. Concern for underlying COPD and pulmonary fibrosis. Recommend outpatient PFTs and pulmonology follow up. This was d iscussed with patient Obstructive sleep apnea: Continue home CPAP Obesity Testing for CO VID-19: NEGATIVE DVT ppx: Lovenox Diet: Cardiac Code status: FUll code Attestations Medical Necessity Statement*: Patient requires further hospitalization due to CHF exacerbation, new onset afib, chest pain Coding Level of Care Code Acute Matting Press Tender for Chg Fwd Diagnoses Chest pain R07.9 Congestive heart failure I50.9 Coronary artery disease I25.10 Hyperlipidemia E78.5 Tobacco abuse Z72.0
--- NOTE | 2020-05-08 15:41 | PC.NURSE ---
patient has tolerated 2 L NC for the most part of the shift; Cpap is set up in room and patient is turned down to 1L nc will continue to monitor
--- NOTE | 2020-05-08 16:28 | PC.RESP ---
SMOKING CESSATION INFORMATION SENT TO PATIENT.
--- NOTE | 2020-05-08 19:47 | PC.NURSE ---
Patient does not have any complains at this time. Patient is on 1 L NC. Oxygen saturation fluctuates, however is at 90 percent at this time. Call light is within reach. Will continue to monitor.
[2020-05-09] VITALS (8 sets, daily range): BP systolic 111–162; BP diastolic 65–74; PULSE 69–83; RESP 20–27; TEMP 36.6–36.9; O2SAT 90–96
[2020-05-09] MEDS: enoxaparin 120 mg/0.8 mL Syringe SUBCUT (00:16)
--- NOTE | 2020-05-09 01:10 | PC.NURSE ---
Patient's oxygen saturation has maintained between 88 percent 92 percent with CPAP. Will continue to monitor with continuous pulse ox.
--- NOTE | 2020-05-09 04:55 | PC.NURSE ---
Patient had uneventful night. Will continue to monitor.
[2020-05-09 05:18] LABS: Basophils # 0.1 10^3/uL (0.0-0.1); Basophils % 0.6 %; Eosinophils # 0.2 10^3/uL (0.0-0.8); Eosinophils % 1.9 %; Hematocrit 40.9 % (42.0-52.0); Hemoglobin 12.8 g/dL (11.7-16.6); Lymphocytes # 2.3 10^3/uL (0.8-4.8); Lymphocytes % 19.2 %; Mean Corpuscular HGB Conc 31.3 g/dL (30.0-36.0); Mean Corpuscular Hemoglobin 29.1 pg (28.0-34.0); Mean Platelet Volume 10.8 fL (7.4-10.4); Monocytes # 1.1 10^3/uL (0.2-0.9); Monocytes % 8.9 %; Neutrophils # 8.2 10^3/uL (1.8-7.7); Neutrophils % 68.7 %; Nucleated Red Blood Cells % 0 %; Platelet Count 382 10^3/cmm (130-400); Red Cell Distribution Width 14.3 % (12.1-15.1)
[2020-05-09 05:31] LABS: Anion Gap 17.2 (5-19); Blood Urea Nitrogen 21 mg/dL (8-23); Calcium 9.5 mg/dL (8.5-10.5); Carbon Dioxide 33 mmol/L (22-29); Chloride 97 mmol/L (98-107); Glucose 109 mg/dL (65-115); Osmolality Calculated 295 mOsm/kg (285-295); Potassium 3.2 mmol/L (3.5-5.1); Sodium 144 mmol/L (136-145)
--- NOTE | 2020-05-09 07:49 | PC.NURSE ---
Dr wood at bedside for rounding discussing POC with patient; HOME o2 evaluation; medication changes; further testing and pulmonary and cardiology consult; smoking cessation follow up care.
[2020-05-09] MEDS: FUROsemide 40 mg Tablet PO (07:55)
--- NOTE | 2020-05-09 07:59 | P.DS_ITS ---
Discharge Providers Date of Admission: 05/07/20 15:30 Date of Discharge: May 09, 2020 Attending Provider at Admission: Sherine Mcnally DO Attending Provider at Discharge: Sherine Mcnally DO Primary Care Provider: Srinivas Ritchie DO Diagnoses at Discharge Discharge Diagnosis (1) Chest pain: Status: Acute (2) Congestive heart failure: Status: Acute Problem details: Diastolic CHF (3) Coronary artery disease: Status: Acute Problem details: S/P CABG in 1999 & 6-7 stents since that time (4) Hyperlipidemia: Status: Acute (5) Tobacco abuse: Status: Acute Reason for Visit Reason for Visit: CHEST PAIN, CAD Hospital Course Hospital Course: Patient was seen and evaluated in the emergency department noted to have chest pain with a history of coronary artery disease. Patient appeared to be fluid overloaded on chest x-ray and was given IV diuretics. He was admitted for further evaluation and treatment. Patient was noted to have concern for diastolic congestive heart failure exacerbation and continued on IV Lasix with strict intake and output as well as daily weights. His records were obtained from an outside facility in [place] and it was noted that patient had a history of CABG x1 vessel with approximately 5-6 stents placed in the past. Patient had echocardiogram which showed diastolic dysfunction with LVEF around 55 to 60%. He was also noted to have pulmonary hypertension and imaging findings with concern for pulmonary fibrosis. Patient did have an episode of atrial fibrillation, rate controlled, while in the hospital. He was started on full dose anticoagulation. Patient continued to improve with IV diuretics. Stress test showed artifact but no evidence of any new ischemic changes. Chest pain resolved and dyspnea on exertion resolved with diuresis. On date of discharge patient was sitting up at the side of bed reporting that he was feeling much better, discussed with him plan for discharge to home with medication changes and follow-up with cardiology and pulmonology. Patient verbalized understanding of plan and agreed with plan. Physical Exam Const: COMMON NORMALS: patient oriented x3 and alert GENERAL APPEARANCE: cooperative ORIENTATION/CONSCIOUSNESS: Yes awake, Yes oriented to person, Yes oriented to place and Yes oriented to time HENMT: COMMON NORMALS: normocephalic and atraumatic HEAD & SCALP: normocephalic and atraumatic Eye: COMMON NORMALS: Equal, round and reactive pupils present PUPIL: Yes Equal, round and reactive pupils present Neck/C-Spine: COMMON NORMALS: supple GENERAL: Yes normal visual inspection Resp: COMMON NORMALS: normal respiratory effort EFFORT & INSPECTION: Yes able to speak in complete sentences OTHER: Diminished breath sounds bilaterally with prolonged expiratory phase, no wheezing or rhonchi Cardio: COMMON NORMALS: regular rate, regular rhythm and No murmurs present (Cardio) RATE: regular rate RHYTHM: regular rhythm OTHER: Occasional PVC GI: COMMON NORMALS: Soft to palpation and non-tender INSPECTION: No abdominal distension AUSCULTATION: Yes normoactive bowel sounds PALPATION: Yes Soft to palpation Extremity: COMMON NORMALS: no clubbing, cyanosis or edema and no calf tenderness Neuro: COMMON NORMALS: patient oriented x3, CN's II-XII intact bilaterally, moves all extremities and no focal motor deficits SENSORIUM/ORIENTATION: Yes alert, Yes oriented to person, Yes oriented to place and Yes oriented to time SPEECH: speech normal Psych: COMMON NORMALS: mental status grossly normal and cooperative Skin: COMMON NORMALS: no rashes or lesions noted GENERAL SKIN EXAM: no rashes or lesions noted Discharge Data Data Completed and Pending: Completed Studies During Hospitalization Category Date Time Status CT angio chest PE protcl 02121 Rout ine Cat Scan 05/07/20 08:00 Completed XR chest 1V robert ble [id number] Routine Exams 05/07/20 09:36 Completed XR chest 1V robert ble [id number] Urgent Exams 05/06/20 08:58 Completed NM winsome perf SPECT r/s* [id number] Routin e Nuc Med 05/08/20 Completed CV echo complete* [id number] Routine Ultrasound 05/07/20 07:00 Completed Pending at discharge Category Date Time Status Sestamibi Stress Test Request Routi ne Exams 05/06/20 12:55 Stop Req Sestamibi Stress Test Request Routi ne Exams 05/08/20 06:00 Ordered Labs from last 24 hours 05/09/20 05/09/20 04:45 04:45 WBC 12.0 H RBC 4.40 Hgb 12.8 Hct 40.9 L MCV 93.0 MCH 29.1 MCHC 31.3 RDW 14.3 Plt Count 382 MPV 10.8 H Neut % (Auto) 68.7 Lymph % (Auto) 19.2 [place] % (Auto) 8.9 Eos % (Auto) 1.9 Baso % (Auto) 0.6 Neut # (Auto) 8.2 H Lymph # (Auto) 2.3 [place] # (Auto) 1.1 H Eos # (Auto) 0.2 Baso # (Auto) 0.1 Nucleated RBC % (a uto) 0 Nucleated RBCs # 0.0 Sodium 144 Potassium 3.2 L Chloride 97 L Carbon Dioxide 33 H Anion Gap 17.2 BUN 21 Creatinine 1.0 Glucose 109 Calculated Osmolal ity 295 Calcium 9.5 Vitals: Last Vital Signs Temp 98.2 F 05/09/20 07:04 Pulse 78 05/09/20 07:04 Resp 27 H 05/09/20 07:04 BP 116/65 05/09/20 07:04 Pulse Ox 96 05/09/20 07:04 Discharge Plan Discharge Patient Disposition: Home, Self-Care Condition: Stable Prescriptions: New atorvastatin 40 mg tablet 40 mg PO QPM 30 Days Qty: 30 RF: 0 furosemide 40 mg Tablet 40 mg PO DAILY@0800 30 Days Qty: 30 RF: 0 Eliquis 5 mg tablet 5 mg PO BID 30 Days Qty: 60 RF: 0 potassium chloride 20 mEq tablet extended release 20 meq PO DAILY 30 Days Qty: 30 RF: 0 Continued hydrochlorothiazide 25 mg tablet 25 mg PO DAILY RF: 0 lisinopril 40 mg tablet 40 mg PO DAILY RF: 0 carvedilol 25 mg Tablet 25 mg PO BID RF: 0 sertraline 100 mg Tablet 100 mg PO DAILY RF: 0 hydralazine 25 mg Tablet 25 mg PO TID RF: 0 Plavix 75 mg Tablet 75 mg PO DAILY RF: 0 omeprazole 40 mg Capsule,Delayed Release(Dr/Ec) 40 mg PO DAILY RF: 0 aspirin 81 mg Tablet,Chewable 81 mg PO DAILY RF: 0 ProAir HFA 90 mcg/actuation Hfa Aerosol Inhaler 1 inh INHALATION QID PRN (Reason: Shortness Of Breath) RF: 0 Symbicort 160-4.5 mcg/actuation Hfa Aerosol Inhaler 2 puff INHALATION BID RF: 0 PreserVision AREDS-2 [id number] [id number] Capsule 1 tab PO BID RF: 0 Discontinued simvastatin 80 mg tablet 40 mg PO DAILY RF: 0 Discharge Orders: Discharge Order (Routine); Ordered 05/09/20 Ordered By: Sherine Mcnally Other Ambulatory Orders: DME: CPAP (Order) Location: None Selected Ordered By: Sherine Mcnally Pulmonary Function Screen with Bronchodilator (Routine) Timeframe: 2 Weeks Facility: [facility] - Location: Respiratory Therapy Ordered By: Sherine Mcnally Referrals: Srinivas Ritchie DO [Primary Care Provider] - 4-7 days Jackie Young MD [Physician] - 6 Weeks (4-6 weeks or as soon as first appointment is available. Establish care, COPD, concern for pulmonary fibrosis) Coni Snyder MD [Physician] - 1 month (Establish care with cardiology, first available provider) Discharge Diet: Cardiac and Low Salt Discharge Activity: Increase activity as tolerated, Oxygen as instructed and Cpap/Bipap as instructed Activity Restrictions/Additional Instructions: You were hospitalized for chest pain. This was felt to be secondary to diastolic congestive heart failure. You were noted to have fluid overload due to this, therefore you were treated with diuretic medications (water pills). You were prescribed a new water pill to take when you were discharged to home, this medication is called Lasix it is 40 mg once a day. Along with the Lasix please take potassium 20 mEq daily. Remember to check your weight daily, for any weight gain more than 3 to 5 pounds in a 24-hour period please call your physician. For any increasing shortness of breath or chest pain please present to the emergency department. Limit sodium, (salt) intake to less than 2g per 24 hrs. Continue to wear your CPAP each night. Noted to have atrial fibrillation, irregular heartbeat, this can place you at an increased risk for stroke therefore blood thinner was recommended. The blood thinner that you were started on his Eliquis it is 5 mg to be taken twice a day. Due to having a stent within the last year you will likely need to stay on aspirin and plavix until that time is up, please follow up with cardiology to determine when you can come off of one of the antiplatelet medications. Your cholesterol medication, simvastatin was discontinued and you were started on a higher potency cholesterol medication called atorvastatin. Concern for COPD and pulmonary fibrosis. You had a CT scan of your chest which showed concern for chronic lung changes. Would recommend outpatient pulmonary function testing and follow-up with Dr. Young, towel sewer (lung doctor). Due to your history of coronary artery disease, heart disease, I would recommend follow up with assistant media buyer as soon as first appointment is available to establish care. Would strongly encourage you to stop smoking as this will decrease your risk of further cardiac events, stroke and further lung damage. Please call your physician or present to the ED for any acute illness or concern. Discharge Attestations Time Spent in Discharge Care*: greater than 30 min Specific Discharge Activities: Specific discharge activities: educating and/or supporting family/caregiver and documenting/other paperwork Time Spent in Smoking Cessation: Time spent discussing smoking cessation with patient: more than 10 minutes Details of Smoking Cessation Education: Discussed concern for COPD and pulmonary fibrosis. Discussed with patient oxygenation. Offered patient nicotine patches or nicotine gum prescription, however he reported that he will just quit cold turkey. Advice and recomme ndations provided to patient. He verbalized understanding and agreed with plan. Quality Metrics Clinical Quality Measures During this hospital stay, did patient experience: None Coding Level of Care Code Acute Director Of Land for Seema Quach Exam Comprehensive Diagnoses Chest pain R07.9 Congestive heart failure I50.9 Coronary artery disease I25.10 Hyperlipidemia E78.5 Tobacco abuse Z72.0
[2020-05-09] MEDS: potassium chloride ER 10 mEq Tablet 40 MEQ PO (09:42)
[2020-05-09] MEDS: sertraline 100 mg Tablet PO (09:42)
[2020-05-09] MEDS: atorvastatin 40 mg Tablet 20 MG PO (09:42)
[2020-05-09] MEDS: aspirin 81 mg Chew Tablet PO (09:43)
[2020-05-09] MEDS: pantoprazole DR 40 mg Tablet PO (09:43)
[2020-05-09] MEDS: lisinopril 20 mg Tablet 40 MG PO (09:43)
[2020-05-09] MEDS: hyDRALAzine 25 mg Tablet PO (09:43)
[2020-05-09] MEDS: clopidogrel 75 mg Tablet PO (09:43)
[2020-05-09] MEDS: carvedilol 25 mg Tablet PO (09:43)
[2020-05-09] MEDS: hydroCHLOROthiazide 25 mg Tablet PO (09:43)
--- NOTE | 2020-05-09 10:45 | PC.NURSE ---
Medications brought to bedside by [facility] pharmacy: [facility]
--- NOTE | 2020-05-09 11:20 | PC.NURSE ---
discharge instructions given and explained to patient; patient verbalizes understanding of instruction given. Medications at bedside; copy of all discharge instructions given to patient
--- NOTE | 2020-05-09 13:05 | PC.NURSE ---
Patient discharged home; all belongings and discharge instructions in hand patient assisted to private vehicle by staff via wheel chair patient alert and in stable condition.
== END 2020-05-09 12:40 | disposition home or self-care (01) | DRG 291 ==
LOC: ER 10:24 → ICU 11:59 → CSU 18:48
PROVIDERS: Family Medicine; Physician Assistant; Admitting Provider Family Medicine; PCP Emergency Medicine Emergency Medical Services; Visit Provider Family Medicine
DX: I13.0 Hypertensive heart and chronic kidney disease with heart failure and stage 1 through stage 4 chronic kidney disease, or unspecified chronic kidney disease (principal); I50.31 Acute diastolic (congestive) heart failure; I25.10 Atherosclerotic heart disease of native coronary artery without angina pectoris; F17.210 Nicotine dependence, cigarettes, uncomplicated; Z95.5 Presence of coronary angioplasty implant and graft; Z95.1 Presence of aortocoronary bypass graft; E78.5 Hyperlipidemia, unspecified; Z20.828 Contact with and (suspected) exposure to other viral communicable diseases; J44.9 Chronic obstructive pulmonary disease, unspecified; J84.10 Pulmonary fibrosis, unspecified; E66.9 Obesity, unspecified; Z68.35 Body mass index [BMI] 35.0-35.9, adult; I48.0 Paroxysmal atrial fibrillation; G47.33 Obstructive sleep apnea (adult) (pediatric); I27.20 Pulmonary hypertension, unspecified; Z79.02 Long term (current) use of antithrombotics/antiplatelets; Z79.82 Long term (current) use of aspirin; Z79.51 Long term (current) use of inhaled steroids
CPT/HCPCS: 12345; 36415; 36600; 71045; 71275; 78452; 80048; 80053; 80061; 82803; 83880; 84443; 84484; 85025; 85378; 85610; 87635; 93005; 93017; 93306; 94640; 94660; 96372; 96375; 99283; A9500; G0378; J0360; J1650; J1940; J2785; J3535; Q9967

== ENCOUNTER 2020-05-15 14:36 | Emergency (ER) | payer OTHER, MEDICARE, SELFPAY ==
[2020-05-15 14:41] VITALS: BMI 35.9
[2020-05-15 14:44] VITALS: BP 190/93; PULSE 66; RESP 18; TEMP 36.8; O2SAT 96
--- NOTE | 2020-05-15 15:18 | W.ED.GIBLEED ---
HPI - GI Bleed General: Chief complaint: GI Bleed Stated complaint: blood in stool Time Seen by Provider: 05/15/20 14:51 History of Present Illness: HPI Narrative: 75 Sara male comes in complaining of passing painless rectal bleeding he had a single episode recently started. A week ago he was started on Eliquis for atrial fibrillation that was noted while he was hospitalized. He has been a little bit lightheaded and dizzy at times noted some shortness of breath but no other symptoms not noticed any other hematuria. He is not noticed any blood in his stool is not thrown up any blood. He denies any fever sweats chills nausea vomiting or diarrhea denies any chest pain or palpitations MD complaint: gross hematochezia Onset (ago): hour(s) Pain Consistency: other (Single episode) Severity: moderate Relieving factors: none Exacerbating factors: none Context: anticoagulant use Associated symptoms: Reports no associated symptoms; Denies abdominal pain, chills, fever(s), malaise, nausea, rash or vomiting Treatments Prior to Arrival: none Review of Systems Const: Denies: fever(s), chills, body aches, change in appetite, fatigue or malaise ENMT: Denies: throat pain, ear or mastoid pain, nasal discharge or nasal congestion Card: Denies: chest pain, edema, dyspnea on exertion or orthopnea Resp: Denies: dyspnea, productive cough or non-productive cough GI: Denies: abdominal pain, nausea, vomiting, hematemesis, coffee ground emesis, diarrhea, constipation, bloating, hematochezia or melena : Denies: flank pain, dysuria, urinary frequency or urinary urgency Skin/Breast: Denies: rash or pruritus PFSH ED PFSH: Medical History Congestive heart failure Diastolic CHF Coronary artery disease S/P CABG in 1999 & 6-7 stents since that time Hyperlipidemia Hypertension Obstructive sleep apnea Tobacco abuse Surgical History History of cataract surgery Hx of CABG 1999, 1 vessel S/P PTCA (percutaneous transluminal coronary angioplasty) Patient reports 6-7 stents in the past. Last was performed in June 2019 in [place] Family History Daughter Hypertension Son Hypertension Denies family history of Dementia Social History Smoking and tobacco status: current every day smoker cigarettes Packs smoked per day: 0.5 Quit status (tobacco): not considering quitting Second hand smoke exposure: No Alcohol intake: never Desire information about alcohol rehabilitation?: No Desire information about substance/drug rehabilitation?: No History of recent travel: No Current gender identity: Male Physical Exam Const: COMMON NORMALS: no acute distress GENERAL APPEARANCE: cooperative and comfortable ORIENTATION/CONSCIOUSNESS: Yes awake, Yes oriented to person, Yes oriented to place and Yes oriented to time HENMT: COMMON NORMALS: normocephalic, atraumatic, hearing grossly normal bilaterally, external ears normal, EAC's normal, TM's normal bilaterally, Normal nasal mucous membranes and turbinates present, moist oral mucous membranes and oropharynx normal HEAD & SCALP: normocephalic and atraumatic NOSE: Normal nasal mucous membranes and turbinates present EXTERNAL EAR: Yes external ears normal EXTERNAL AUDITORY CANAL: EAC's normal TYMPANIC MEMBRANE: TM's normal bilaterally Eye: COMMON NORMALS: Equal, round and reactive pupils present, EOMs intact bilaterally, conjunctivae normal and no scleral icterus CONJUNCTIVA: Yes conjunctivae normal PUPIL: Yes Equal, round and reactive pupils present Neck/C-Spine: COMMON NORMALS: full ROM, no lymphadenopathy, supple and no JVD Lymph: LYMPHATIC: no lymphadenopathy noted and no lymphedema noted Resp: COMMON NORMALS: normal respiratory effort, No retractions, No use of accessory muscles and clear to auscultation bilaterally AUSCULTATION: clear to auscultation bilaterally Cardio: COMMON NORMALS: no JVD, regular rate, regular rhythm and No murmurs present (Cardio) RATE: regular rate RHYTHM: regular rhythm GI: COMMON NORMALS: Soft to palpation and No hepatosplenomegaly present AUSCULTATION: Yes normoactive bowel sounds PALPATION: Yes Soft to palpation, No Tenderness to palpation present (GI), No Guarding due to palpation present (GI) and Yes No hepatosplenomegaly present Extremity: COMMON NORMALS: normal to inspection, capillary refill normal, no clubbing, cyanosis or edema, no calf tenderness and no pedal edema Neuro: SENSORIUM/ORIENTATION: Yes oriented to person, Yes oriented to place and Yes oriented to time Skin: COMMON NORMALS: no rashes or lesions noted GENERAL SKIN EXAM: no rashes or lesions noted Course Vital Signs: Vital signs: Vital Signs Temperature 98.2 F 05/15/20 14:44 Pulse Rate 66 05/15/20 14:44 Respiratory Rate 18 05/15/20 14:44 Blood Pressure 190/93 05/15/20 14:44 Pulse Oximetry 96 05/15/20 14:44 MDM - GI Bleed MDM Narrative: Medical decision making narrative: He is only had small little blood a little bit in the toilet and a little bit on the paper Ekta go and discharge him home have him recheck hemoglobin tomorrow if he has any further bleeding or increased bleeding should return to the emergency room immediately with made contact with his primary care group [facility] and they are agreeable to recheck it tomorrow. Lab Data: Labs: Lab Results 05/15/20 05/15/20 05/15/20 Range/Units 15:43 15:43 15:43 WBC 11.5 H (4.0-10.0) 10^3/ uL RBC 4.41 (4.1-5.3) 10^6/u L Hgb 13.0 (11.7-16.6) g/dL Hct 40.2 L (42.0-52.0) % MCV 91.2 (80-94) fL MCH 29.5 (28.0-34.0) pg MCHC 32.3 (30.0-36.0) g/dL RDW 14.0 (12.1-15.1) % Plt Count 353 (130-400) 10^3/c mm MPV 10.9 H (7.4-10.4) fL Neut % (Auto) 66.0 % Lymph % (Auto) 22.0 % [place] % (Auto) 9.0 % Eos % (Auto) 2.0 % Baso % (Auto) 0.5 % Neut # (Auto) 7.6 (1.8-7.7) 10^3/u L Lymph # (Auto) 2.5 (0.8-4.8) 10^3/u L [place] # (Auto) 1.0 H (0.2-0.9) 10^3/u L Eos # (Auto) 0.2 (0.0-0.8) 10^3/u L Baso # (Auto) 0.1 (0.0-0.1) 10^3/u L Nucleated RBC % (a uto) 0 % Nucleated RBCs # 0.0 /100WBC PT 14.20 H (10.5-13.3) SECO NDS INR 1.06 (0.8-1.2) APTT 34.3 (23.9-36.7) SECO NDS Sodium 141 (136-145) mmol/L Potassium 3.8 (3.5-5.1) mmol/L Chloride 99 (98-107) mmol/L Carbon Dioxide 29 (22-29) mmol/L Anion Gap 16.8 (5-19) BUN 16 (8-23) mg/dL Creatinine 0.8 (0.7-1.2) mg/dL Glucose 99 (65-115) mg/dL Calculated Osmolal ity 288 (285-295) mOsm/k g Calcium 9.8 (8.5-10.5) mg/dL Total Bilirubin 0.4 (0.15-1.2) mg/dL AST 25 (0-40) U/L ALT 33 (0-41) U/L Alkaline Phosphata se 98 (40-130) IU/L Total Protein 7.5 (6.6-8.7) g/dL Albumin 4.3 (3.5-5.2) g/dL Globulin 3.2 (1.3-4.6) g/dL Discharge Plan Discharge Patient Disposition: Home, Self-Care Clinical Impression: Bright red rectal bleeding Condition: Stable Prescriptions: No Action hydrochlorothiazide 25 mg tablet 25 mg PO DAILY RF: 0 lisinopril 40 mg tablet 40 mg PO BID RF: 0 carvedilol 25 mg Tablet 25 mg PO BID RF: 0 sertraline 100 mg Tablet 100 mg PO DAILY RF: 0 hydralazine 25 mg Tablet 25 mg PO TID RF: 0 clopidogrel [Plavix] 75 mg Tablet 75 mg PO DAILY RF: 0 omeprazole 40 mg Capsule,Delayed Release(Dr/Ec) 40 mg PO DAILY RF: 0 aspirin 81 mg Tablet,Chewable 81 mg PO DAILY RF: 0 albuterol sulfate [ProAir HFA] 90 mcg/actuation Hfa Aerosol Inhaler 2 inh INHALATION QID PRN (Reason: Shortness Of Breath) RF: 0 budesonide-formoterol [Symbicort] 160-4.5 mcg/actuation Hfa Aerosol Inhaler 2 puff INHALATION BID RF: 0 PreserVision AREDS-2 [id number]-mg Capsule 1 tab PO BID RF: 0 atorvastatin 40 mg tablet 40 mg PO QPM 30 Days Qty: 30 RF: 0 furosemide 40 mg Tablet 40 mg PO DAILY@0800 30 Days Qty: 30 RF: 0 Eliquis 5 mg tablet 5 mg PO BID 30 Days Qty: 60 RF: 0 potassium chloride 20 mEq tablet extended release 20 meq PO DAILY 30 Days Qty: 30 RF: 0 ketorolac 0.5 % Drops 1 drp OPHTHALMIC (EYE) QID PRN (Reason: unknown) RF: 0 prednisolone acetate 1 % Drops,Suspension 1 drp OPHTHALMIC (EYE) QID RF: 0 Referrals: Srinivas Ritchie, DO [Primary Care Provider] - Discharge Diet: Usual diet Discharge Activity: Resume usual activity Activity Restrictions/Additional Instructions: Recheck hemoglobin tomorrow Case management will help make arrangements for you to be seen at a local doctors office. If you have a large amount of blood return to the emergency room immediately Coding Level of Care Code ED Seed Corn Manager Production for Chg Fwd Exam Comprehensive
[2020-05-15 15:48] LABS: Basophils # 0.1 10^3/uL (0.0-0.1); Basophils % 0.5 %; Eosinophils # 0.2 10^3/uL (0.0-0.8); Hematocrit 40.2 % (42.0-52.0); Lymphocytes # 2.5 10^3/uL (0.8-4.8); Mean Corpuscular HGB Conc 32.3 g/dL (30.0-36.0); Mean Corpuscular Hemoglobin 29.5 pg (28.0-34.0); Mean Corpuscular Volume 91.2 fL (80-94); Mean Platelet Volume 10.9 fL (7.4-10.4); Neutrophils # 7.6 10^3/uL (1.8-7.7); Nucleated Red Blood Cells % 0 %; Platelet Count 353 10^3/cmm (130-400); Red Blood Count 4.41 10^6/uL (4.1-5.3); White Blood Count 11.5 10^3/uL (4.0-10.0)
[2020-05-15 15:57] LABS: INR 1.06 (0.8-1.2)
[2020-05-15 15:58] LABS: Partial Thromboplastin Time 34.3 SECONDS (23.9-36.7)
[2020-05-15 16:03] LABS: Alanine Aminotransferase 33 U/L (0-41); Albumin Level 4.3 g/dL (3.5-5.2); Alkaline Phosphatase 98 IU/L (40-130); Anion Gap 16.8 (5-19); Aspartate Amino Transferase 25 U/L (0-40); Blood Urea Nitrogen 16 mg/dL (8-23); Calcium 9.8 mg/dL (8.5-10.5); Carbon Dioxide 29 mmol/L (22-29); Chloride 99 mmol/L (98-107); Creatinine Clr Calc Pharmacy 103.7095; Globulin 3.2 g/dL (1.3-4.6); Glucose 99 mg/dL (65-115); Osmolality Calculated 288 mOsm/kg (285-295); Potassium 3.8 mmol/L (3.5-5.1); Sodium 141 mmol/L (136-145); Total Bilirubin 0.4 mg/dL (0.15-1.2); Total Protein 7.5 g/dL (6.6-8.7)
--- NOTE | 2020-05-15 16:08 | DCPLANNER ---
casino shift manager [facility], patient needs to have repeat blood work completed tomorrow, 05.16.20. casino shift manager called [facility], informed her that patient was seen in the ED and what the patient needs. casino shift manager emailed patients records to February. casino shift manager told patient that he would need to call his PACT team and let them know that he needed repeat labs.
[2020-05-15 16:33] VITALS: BP 161/66; PULSE 70; RESP 20; O2SAT 94
== END 2020-05-15 16:33 | disposition home or self-care (01) ==
PROVIDERS: Emergency Provider Family Medicine; PCP Emergency Medicine Emergency Medical Services
DX: K62.5 Hemorrhage of anus and rectum (principal); Z79.02 Long term (current) use of antithrombotics/antiplatelets; Z79.82 Long term (current) use of aspirin; Z79.01 Long term (current) use of anticoagulants; I11.0 Hypertensive heart disease with heart failure; I50.30 Unspecified diastolic (congestive) heart failure; I25.10 Atherosclerotic heart disease of native coronary artery without angina pectoris; Z95.1 Presence of aortocoronary bypass graft; E78.5 Hyperlipidemia, unspecified; F17.210 Nicotine dependence, cigarettes, uncomplicated
CPT/HCPCS: 12345; 36415; 80053; 85025; 85610; 85730; 99281; 99282

== ENCOUNTER 2020-06-17 20:00 | Outpatient (CLI) | payer OTHER, MEDICARE, SELFPAY | END 2020-06-17 20:01 | disposition home or self-care (01) | LOC: SLEEP 06-18 09:11 | PROVIDERS: PCP Emergency Medicine Emergency Medical Services; Visit Provider Nurse Practitioner | DX: G47.30 Sleep apnea, unspecified (principal) | CPT/HCPCS: 95811 ==

== ENCOUNTER 2021-01-27 09:31 | Emergency (ER) | payer OTHER, MEDICARE, SELFPAY ==
[2021-01-27] VITALS (7 sets, daily range): BP systolic 112–156; BP diastolic 71–101; PULSE 59–97; RESP 18–34; TEMP 36.2; O2SAT 93–97; BMI 36.1
--- NOTE | 2021-01-27 09:39 | XR_ITS ---
WS: [id number] PORTABLE CHEST HISTORY: dyspnea/cough COMPARISON: 05/07/2020 Prior CABG. Increased lung volumes. Moderate progression of the interstitial reticular thickening throughout both lungs. No dense area of consolidation. No pleural effusion or pneumothorax. Cardiac size: Mildly enlarged cardiac silhouette. Mediastinum/Aorta: Mild atherosclerosis aorta. No osseous abnormality seen. XR/XR chest 1V portable [id number] IMPRESSION: Diffuse interstitial thickening progressed since 05/07/2020. Suspect interstitial edema superimposed on chronic interstitial lung disease. No pneumonia.
--- NOTE | 2021-01-27 09:41 | ED_ITS ---
HPI - SOB/Dyspnea General: Chief Complaint: Shortness of Breath/Dyspnea Stated Complaint: Trouble Breathing Time Seen by Provider: 01/27/21 09:37 History of Present Illness: HPI Narrative: 75-year-old male comes in complaining of increasing shortness of breath over the last week no fever sweats chills cough myalgias has had a few loose stools. He states he has had some abdominal discomfort as well. He is not had any vomiting or diarrhea. He was seen last summer and was referred to pulmonology. He has some interstitial fibrosis is supposed to have a pulmonary function test but does not appear it got done he did not his follow-up appointment with Dr. Young. He is not having any orthopnea. He does use Symbicort. Interestingly in his medicine list it says he is on Stiolto but he has Symbicort at the bedside that he has been using on a regular basis. He denies any hemoptysis or chest pain. MD elicited complaint: shortness of breath and cough Pertinent past history: COPD Onset (ago): month(s) Context: occurred during exertion Timing: constant Severity: moderate Exacerbating factors: exertion, movement and coughing Relieving factors: rest Known history of: COPD Associated symptoms: Reports cough; Deny chest congestion, chest pain, diaphoresis, dizziness, extremity pain, fever(s), hemoptysis, lightheadedness, myalgias, nausea, orthopnea, palpitations, paresthesias, polydipsia, polyuria, rash, sense of impending doom, syncope or vomiting Treatment prior to arrival: none Review of Systems Const: Denies: fever(s) or diaphoresis ENMT: Denies: throat pain, ear or mastoid pain, nasal discharge or nasal congestion Card: Denies: chest pain, palpitations, lightheadedness, syncope or orthopnea Resp: Denies: hemoptysis or chest congestion GI: Denies: nausea or vomiting : Denies: flank pain, dysuria, urinary frequency or urinary urgency Musc: Denies: extremity pain Skin/Breast: Denies: rash or pruritus Neuro: Denies: dizziness Endo: Denies: polyuria or polydipsia PFSH ED PFSH: Medical History (Updated 01/27/21 @ 12:00 by Siva Hilliard DO) Congestive heart failure Coronary artery disease S/P CABG in 1999 & 6-7 stents since that time Hyperlipidemia Hypertension Obstructive sleep apnea Tobacco abuse Surgical History History of cataract surgery Hx of CABG 1999, 1 vessel S/P PTCA (percutaneous transluminal coronary angioplasty) Patient reports 6-7 stents in the past. Last was performed in June 2019 in [place] Family History Daughter Hypertension Son Hypertension Denies family history of Dementia Social History Smoking and tobacco status: current every day smoker cigarettes Packs smoked per day: 1 Years cigarettes smoked: 50 Quit status (tobacco): not considering quitting Alcohol intake: never Lives independently: Yes Household members: none Marital status: / service: Yes Current occupational status: retired History of recent travel: No Current gender identity: Male Physical Exam Const: COMMON NORMALS: no acute distress GENERAL APPEARANCE: cooperative and comfortable ORIENTATION/CONSCIOUSNESS: Yes awake, Yes oriented to person, Yes oriented to place and Yes oriented to time HENMT: COMMON NORMALS: normocephalic, atraumatic and hearing grossly normal bilaterally HEAD & SCALP: normocephalic and atraumatic Neck/C-Spine: COMMON NORMALS: full ROM, no lymphadenopathy, supple and no JVD Lymph: LYMPHATIC: no lymphadenopathy noted and no lymphedema noted Resp: EFFORT & INSPECTION: Yes pursed lip breathing AUSCULTATION: crackles and wheezes Cardio: COMMON NORMALS: no JVD, regular rate, regular rhythm and No murmurs present (Cardio) RATE: regular rate RHYTHM: regular rhythm GI: COMMON NORMALS: Soft to palpation and No hepatosplenomegaly present AUSCULTATION: Yes normoactive bowel sounds PALPATION: Yes Soft to palpation, No Tenderness to palpation present (GI), No Guarding due to palpation present (GI) and Yes No hepatosplenomegaly present Extremity: COMMON NORMALS: normal to inspection, capillary refill normal, no clubbing, cyanosis or edema, no calf tenderness and no pedal edema Neuro: SENSORIUM/ORIENTATION: Yes oriented to person, Yes oriented to place and Yes oriented to time Skin: COMMON NORMALS: no rashes or lesions noted GENERAL SKIN EXAM: no rashes or lesions noted Course Vital Signs: Vital signs: Vital Signs Temperature 97.2 F L 01/27/21 09:40 Pulse Rate 59 L 01/27/21 11:01 Respiratory Rate 18 01/27/21 11:01 Blood Pressure 150/72 01/27/21 11:01 Pulse Oximetry 97 01/27/21 11:18 MDM - SOB/Dyspnea MDM Narrative: Medical decision making narrative: Rapid Covid is negative. We will get a PCR. Chest x-ray shows interstitial fibrosis clinically does not appear to have significant fluid overload, however radiology read it as possible congestive heart failure on the chest x-ray.. His BNP when he was in the hospital last time was 3500 is 1500 [id number] . Reviewing the chart he did not get any of the follow-up that was recommended. Organ to go ahead and discharge him home put on a Medrol Dosepak or to stop his hydrochlorothiazide and put it back on Lasix 40 p.o. daily albuterol as needed continue his Stiolto and he should follow-up with Dr. Young later this week return to the ER if he has further problems. Lab Data: Labs: Lab Results 01/27/21 01/27/21 01/27/21 Range/Units 10:05 10:05 10:05 WBC 11.1 H (4.0-10.0) 10^3/ uL RBC 3.96 L (4.1-5.3) 10^6/u L Hgb 12.1 (11.7-16.6) g/dL Hct 36.9 L (42.0-52.0) % MCV 93.2 (80-94) fL MCH 30.6 (28.0-34.0) pg MCHC 32.8 (30.0-36.0) g/dL RDW 14.5 (12.1-15.1) % Plt Count 262 (130-400) 10^3/c mm MPV 11.7 H (7.4-10.4) fL Neut % (Auto) 70.0 % Lymph % (Auto) 19.9 % [place] % (Auto) 7.4 % Eos % (Auto) 1.6 % Baso % (Auto) 0.5 % Neut # (Auto) 7.76 H (1.8-7.7) 10^3/u L Lymph # (Auto) 2.2 (0.8-4.8) 10^3/u L [place] # (Auto) 0.8 (0.2-0.9) 10^3/u L Eos # (Auto) 0.2 (0.0-0.8) 10^3/u L Baso # (Auto) 0.1 (0.0-0.1) 10^3/u L Nucleated RBC % (a uto) 0 % Nucleated RBCs # 0.0 /100WBC Specimen Type Sample Site ABG pH (7.35-7.45) ABG pCO2 (35-45) mmHg ABG pO2 (80.0-100.0) mmH g ABG HCO3 (22-26) mmol/L ABG O2 Saturation ABG Base Excess (-2.0-2.0) mmol/ L Guillermo Test A-a O2 Gradient (5-10) mmHg Hematocrit (42-52) % Hgb O2 Saturation (95-100) % Carboxyhemoglobin (0.4-20.1) %THgb Methemoglobin (0.4-1.5) % Total Hemoglobin (14-18) g/dL Ionized Calcium (1.1-1.4) mmol/L O2 Delivery Device Line Installation Supervisor ID Sodium 138 (136-145) mmol/L Potassium 3.8 (3.5-5.1) mmol/L Chloride 99 (98-107) mmol/L Carbon Dioxide 28 (22-29) mmol/L Anion Gap 14.8 (5-19) BUN 15 (8-23) mg/dL Creatinine 0.9 (0.7-1.2) mg/dL GFR Calculation Not Reportable Glucose 112 (65-115) mg/dL Calculated Osmolal ity 288 (285-295) mOsm/k g Calcium 9.4 (8.5-10.5) mg/dL Total Bilirubin 0.8 (0.15-1.2) mg/dL AST 21 (0-40) U/L ALT 17 (0-41) U/L Alkaline Phosphata se 95 (40-130) IU/L NT-Pro-B Natriuret Pep 1551 H (0-125) pg/mL Total Protein 7.7 (6.6-8.7) g/dL Albumin 4.2 (3.5-5.2) g/dL Globulin 3.5 (1.3-4.6) g/dL Urine Color (Yellow) Urine Appearance (CLEAR) Urine pH (5-7) Ur Specific Gravit y (1.005-1.030) Urine Protein (Negative) Urine Glucose (UA) (Normal) Urine Ketones (Negative) Urine Blood (Negative) Urine Nitrate (Negative) Urine Bilirubin (Negative) Urine Urobilinogen (Negative) mg/dL Ur Leukocyte Maryanne ase (Negative) SARS-CoV-2 Ag (Rap id) (Negative) 01/27/21 01/27/21 01/27/21 Range/Units 10:08 10:30 10:30 WBC (4.0-10.0) 10^3/ uL RBC (4.1-5.3) 10^6/u L Hgb (11.7-16.6) g/dL Hct (42.0-52.0) % MCV (80-94) fL MCH (28.0-34.0) pg MCHC (30.0-36.0) g/dL RDW (12.1-15.1) % Plt Count (130-400) 10^3/c mm MPV (7.4-10.4) fL Neut % (Auto) % Lymph % (Auto) % [place] % (Auto) % Eos % (Auto) % Baso % (Auto) % Neut # (Auto) (1.8-7.7) 10^3/u L Lymph # (Auto) (0.8-4.8) 10^3/u L [place] # (Auto) (0.2-0.9) 10^3/u L Eos # (Auto) (0.0-0.8) 10^3/u L Baso # (Auto) (0.0-0.1) 10^3/u L Nucleated RBC % (a uto) % Nucleated RBCs # /100WBC Specimen Type Arterial Sample Site Radial, right ABG pH 7.43 (7.35-7.45) ABG pCO2 40.3 (35-45) mmHg ABG pO2 88.6 (80.0-100.0) mmH g ABG HCO3 27.0 H (22-26) mmol/L ABG O2 Saturation 97.4 ABG Base Excess 2.5 H (-2.0-2.0) mmol/ L Guillermo Test Pos A-a O2 Gradient 1.6 L (5-10) mmHg Hematocrit 37.1 L (42-52) % Hgb O2 Saturation 95.3 (95-100) % Carboxyhemoglobin 1.3 (0.4-20.1) %THgb Methemoglobin 0.8 (0.4-1.5) % Total Hemoglobin 12.1 L (14-18) g/dL Ionized Calcium 1.2 (1.1-1.4) mmol/L O2 Delivery Device Room air Line Installation Supervisor ID [id number] Sodium 141.0 (136-145) mmol/L Potassium 3.6 (3.5-5.1) mmol/L Chloride (98-107) mmol/L Carbon Dioxide (22-29) mmol/L Anion Gap (5-19) BUN (8-23) mg/dL Creatinine (0.7-1.2) mg/dL GFR Calculation Glucose 137.0 H (65-115) mg/dL Calculated Osmolal ity (285-295) mOsm/k g Calcium (8.5-10.5) mg/dL Total Bilirubin (0.15-1.2) mg/dL AST (0-40) U/L ALT (0-41) U/L Alkaline Phosphata se (40-130) IU/L NT-Pro-B Natriuret Pep (0-125) pg/mL Total Protein (6.6-8.7) g/dL Albumin (3.5-5.2) g/dL Globulin (1.3-4.6) g/dL Urine Color Straw (Yellow) Urine Appearance Clear (CLEAR) Urine pH 5 (5-7) Ur Specific Gravit y 1.010 (1.005-1.030) Urine Protein Neg (Negative) Urine Glucose (UA) Norm (Normal) Urine Ketones Negative (Negative) Urine Blood Neg (Negative) Urine Nitrate Negative (Negative) Urine Bilirubin Neg (Negative) Urine Urobilinogen Norm (Negative) mg/dL Ur Leukocyte Maryanne ase Negative (Negative) SARS-CoV-2 Ag (Rap id) Negative (Negative) Discharge Plan Discharge Patient Disposition: Home Clinical Impression: Congestive heart failure, Interstitial pulmonary fibrosis, Acute exacerbation of chronic obstructive airways disease, Obstructive sleep apnea Condition: Stable Prescriptions: New Medrol (Mike) 4 mg tablets,dose pack See Rx Instructions .ROUTE .COMPLEX Qty: 21 RF: 0 furosemide 40 mg tablet 40 mg PO DAILY Qty: 20 RF: 0 albuterol sulfate 90 mcg/actuation HFA aerosol inhaler 2 inh INHALATION Q4H PRN (Reason: shortness of breath or wheezing) Qty: 18 RF: 0 Discontinued hydrochlorothiazide 25 mg tablet 25 mg PO DAILY RF: 0 No Action lisinopril 40 mg tablet 40 mg PO BID RF: 0 Stiolto Respimat 2.5-2.5 mcg/actuation mist 2 puff INHALATION DAILY Qty: 4 RF: 3 carvedilol 25 mg Tablet 25 mg PO BID RF: 0 sertraline 100 mg Tablet 100 mg PO DAILY RF: 0 hydralazine 25 mg Tablet 25 mg PO TID RF: 0 clopidogrel [Plavix] 75 mg Tablet 75 mg PO DAILY RF: 0 omeprazole 40 mg Capsule,Delayed Release(Dr/Ec) 40 mg PO DAILY RF: 0 aspirin 81 mg Tablet,Chewable 81 mg PO DAILY RF: 0 PreserVision AREDS-2 [id number]-oy-mg Capsule 1 tab PO BID RF: 0 ketorolac 0.5 % Drops 1 drp OPHTHALMIC (EYE) QID PRN (Reason: unknown) RF: 0 prednisolone acetate 1 % Drops,Suspension 1 drp OPHTHALMIC (EYE) QID RF: 0 Discharge Orders: Discharge ED (Routine); Ordered 01/27/21 Ordered By: Siva Hilliard Referrals: Srinivas Ritchie DO [Primary Care Provider] - Discharge Diet: Usual diet Discharge Activity: Limit activity as instructed Patient Instructions: Opioid Safety Coding Level of Care Code ED Manager Loss Prevention for Seema Quach
[2021-01-27 10:21] LABS: ABG PCO2 40.3 mmHg (35-45); ABG PH Result 7.43 (7.35-7.45); Alveolar-Arterial Oxygen Gradi 1.6 mmHg (5-10); Arterial Blood Gas Hematocrit 37.1 % (42-52); Base Excess ABG 2.5 mmol/L (-2.0-2.0); Blood Gas Allen Test Pos; Blood Gas Sample Site Radial, right; Blood Gas Sample Type Arterial; Carboxyhemoglobin 1.3 %THgb (0.4-20.1); HGB O2 Sat 95.3 % (95-100); Ionized Calcium Level - ABG 1.2 mmol/L (1.1-1.4); Methemoglobin 0.8 % (0.4-1.5); Oxygen Device ROOM AIR; Oxygen Saturation ABG 97.4; PO2 ABG 88.6 mmHg (80.0-100.0); Potassium Level - ABG 3.6 mmol/L (3.5-5.0); Total Hemoglobin 12.1 g/dL (14-18)
[2021-01-27 10:23] LABS: Basophils # 0.1 10^3/uL (0.0-0.1); Basophils % 0.5 %; Eosinophils # 0.2 10^3/uL (0.0-0.8); Eosinophils % 1.6 %; Hematocrit 36.9 % (42.0-52.0); Hemoglobin 12.1 g/dL (11.7-16.6); Lymphocytes # 2.2 10^3/uL (0.8-4.8); Lymphocytes % 19.9 %; Mean Corpuscular HGB Conc 32.8 g/dL (30.0-36.0); Mean Corpuscular Hemoglobin 30.6 pg (28.0-34.0); Mean Corpuscular Volume 93.2 fL (80-94); Mean Platelet Volume 11.7 fL (7.4-10.4); Monocytes # 0.8 10^3/uL (0.2-0.9); Monocytes % 7.4 %; Neutrophils # 7.76 10^3/uL (1.8-7.7); Nucleated Red Blood Cells % 0 %; Platelet Count 262 10^3/cmm (130-400); Red Blood Count 3.96 10^6/uL (4.1-5.3); Red Cell Distribution Width 14.5 % (12.1-15.1); White Blood Count 11.1 10^3/uL (4.0-10.0)
[2021-01-27] MEDS: FUROsemide 10 mg/mL SDV 4mL 40 MG IVP (10:37)
[2021-01-27 10:58] LABS: Alanine Aminotransferase 17 U/L (0-41); Albumin Level 4.2 g/dL (3.5-5.2); Alkaline Phosphatase 95 IU/L (40-130); Anion Gap 14.8 (5-19); Aspartate Amino Transferase 21 U/L (0-40); Blood Urea Nitrogen 15 mg/dL (8-23); Calcium 9.4 mg/dL (8.5-10.5); Carbon Dioxide 28 mmol/L (22-29); Chloride 99 mmol/L (98-107); Globulin 3.5 g/dL (1.3-4.6); Glucose 112 mg/dL (65-115); Osmolality Calculated 288 mOsm/kg (285-295); Potassium 3.8 mmol/L (3.5-5.1); Sodium 138 mmol/L (136-145); Total Bilirubin 0.8 mg/dL (0.15-1.2); Total Protein 7.7 g/dL (6.6-8.7)
[2021-01-27 11:03] LABS: Add Urine Microscopic? NO
[2021-01-27 11:10] LABS: NT Pro B Type Natriuretic Pept 1551 pg/mL (0-125)
[2021-01-27 11:22] LABS: Bilirubin Urine Neg (Negative); Blood Urine Neg (Negative); Glucose Urine UA Norm (Normal); Ketones Urine Negative (Negative); Leukocyte Esterase Urine Negative (Negative); Nitrate Urine Negative (Negative); Protein Urine Neg (Negative); Urine Appearance Clear (CLEAR); Urine Color Straw (Yellow); Urobilinogen Urine Norm (Negative); pH Urine 5 (5-7)
[2021-01-27 11:44] LABS: SARS Covid-2 Antigen Negative (Negative)
--- NOTE | 2021-01-27 14:52 | ECG_ITS ---
[facility] Test Date: 2021-01-27 Pat Name: Yohannes La Department: Room: Gender: Male Tank Hoop Bender: : [id number] Requested By: Siva Orta Order Number: [id number] Barbie MD: Vu Rubio M.D. Measurements Intervals [place] Rate: 74 P: 43 ID: [id number] QRS: 89 QRSD: 96 T: -19 QT: 393 QTc: 436 Interpretive Statements SINUS RHYTHM NONSPECIFIC ST & T-WAVE ABNORMALITY Compared to ECG 05/06/2020 15:04:52 Atrial fibrillation no longer present T-wave abnormality still present Electronically Signed On 01-27-2021 18:52:57 CORPORATE TREASURY ANALYST by Vu Rubio M.D. [email or web address] medical specialty hospital - [facility] [id number]
[2021-01-29 14:17] LABS: Coronavirus Test Green County Not Detected
--- NOTE | 2021-01-29 16:17 | PC.NURSE ---
Patient notified of COVID results at this time.
== END 2021-01-27 12:15 | disposition home or self-care (01) ==
PROVIDERS: Emergency Provider Family Medicine; PCP Emergency Medicine Emergency Medical Services
DX: J44.1 Chronic obstructive pulmonary disease with (acute) exacerbation (principal); G47.33 Obstructive sleep apnea (adult) (pediatric); J84.10 Pulmonary fibrosis, unspecified; I11.0 Hypertensive heart disease with heart failure; I50.9 Heart failure, unspecified; Z79.02 Long term (current) use of antithrombotics/antiplatelets; Z79.82 Long term (current) use of aspirin; I25.10 Atherosclerotic heart disease of native coronary artery without angina pectoris; E78.5 Hyperlipidemia, unspecified; Z95.1 Presence of aortocoronary bypass graft; F17.210 Nicotine dependence, cigarettes, uncomplicated
CPT/HCPCS: 36600; 71045; 80051; 80053; 81003; 82330; 82805; 83880; 85025; 87426; 87635; 93005; 94760; 96374; 99284; J1940

== ENCOUNTER → 2021-03-13 10:07 | Outpatient (BNVA) | payer OTHER, MEDICARE, SELFPAY | PROVIDERS: PCP Emergency Medicine Emergency Medical Services; Visit Provider Internal Medicine Critical Care Medicine | DX: J43.9 Emphysema, unspecified (principal) | CPT/HCPCS: 87635 ==

== ENCOUNTER 2021-03-17 13:23 | Outpatient (CLI) | payer OTHER, MEDICARE, SELFPAY ==
--- NOTE | 2021-03-17 14:00 | PFTS_ITS ---
Date of Study:03/17/21 Date of Dictation: MECHANICS: Forced vital capacity (FVC) is reduced. Forced expiratory volume in one second (FEV1) is reduced. FEV1/FVC is normal. FLOW VOLUME LOOP: The patient did not have early peak expiratory flow in the flow volume loop. LUNG VOLUMES: Total lung capacity (TLC) is reduced. Residual volume (RV) is normal. DIFFUSING CAPACITY FOR CARBON MONOXIDE: Moderately reduced. INTERPRETATION: The pulmonary function tests are consistent with mild restriction. There is no significant postbronchodilator response. Lung volumes are consistent with mild restriction. Gas exchange (DLCO) is moderately reduced. MTDD
--- NOTE | 2021-03-17 15:00 | CT_ITS ---
WS: [id number] CT CHEST TECHNIQUE: Noncontrast CT of the chest with coronal and sagittal reformatted images. CLINICAL INFORMATION: J84.10 - Pulmonary fibrosis, unspecified COMPARISON: CTA chest May 07, 2020 DLP: 1008.[address] scans at [facility] use at least one of these dose optimization techniques: automat ed exposure control; mA and/or kV adjustment per patient size (includes targeted exams where dose is matched to clinical indication); or iterative reconstruction. FINDINGS: Moderate chronic emphysematous changes. No acute pulmonary infiltrates. No focal consolidation pleura l fluid. No significant interstitial lung disease on this standard chest CT. High-resolution CT was n ot performed. Sternotomy. Aortic calcification. No mediastinal or hilar lymphadenopathy. Small right adrenal adenom a measuring 12 mm. Left adrenal gland is normal. Normal GE junction. No axillary lymphadenopathy. Mild thoracic curve. Hypertrophic changes thoracic spine. CT/CT chest wo con [id number] IMPRESSION: 1. Moderate chronic emphysematous changes. No acute pulmonary infiltrates. 2. No mediastinal or hilar lymphadenopathy. 3. Vascular calcification including coronary. 4. Small esophageal hiatal hernia. 5. 12 mm right adrenal adenoma.
== END 2021-03-17 13:24 | disposition home or self-care (01) ==
LOC: RT 13:27
PROVIDERS: PCP Emergency Medicine Emergency Medical Services; Visit Provider Internal Medicine Critical Care Medicine
DX: J84.10 Pulmonary fibrosis, unspecified (principal); D35.01 Benign neoplasm of right adrenal gland; K44.9 Diaphragmatic hernia without obstruction or gangrene; I25.10 Atherosclerotic heart disease of native coronary artery without angina pectoris
CPT/HCPCS: 71250; 94060; 94726; 94729; J7611

== ENCOUNTER 2021-09-10 12:31 | Outpatient (CLI) | payer OTHER, SELFPAY | END 2021-09-10 12:32 | disposition home or self-care (01) | LOC: SLEEP 12:45 | PROVIDERS: PCP Emergency Medicine Emergency Medical Services; Visit Provider Internal Medicine Critical Care Medicine | DX: J43.9 Emphysema, unspecified (principal) | CPT/HCPCS: 94762 ==

== ENCOUNTER 2022-08-13 09:43 | Outpatient (CLI) | payer OTHER, SELFPAY ==
--- NOTE | 2022-08-13 09:53 | CT_ITS ---
WS: [id number] LDCT LUNG CANCER SCREENING TECHNIQUE: Noncontrast CT of the chest with coronal and sagittal reformatted images. CLINICAL INFORMATION: Z87.891 - Personal history of nicotine dependence COMPARISON: CT chest March 17, 2021 DLP: 89.77 mGy.cm DIvol: Mean CTDIvol: 1.60 (mGy) All CT scans at [facility] use at least one of these dose optimization techniques: automat ed exposure control; mA and/or kV adjustment per patient size (includes targeted exams where dose is matched to clinical indication); or iterative reconstruction. FINDINGS: Moderate chronic emphysematous changes. No acute pulmonary infiltrates. No focal consolidation pleura l fluid. A few tiny subpleural nodulea RIGHT lower lobe. 4 mm nodule LEFT upper lobe laterally with s light surrounding hazy opacity. Sternotomy. Aortic calcification. No mediastinal or hilar lymphadenopathy. Small right adrenal adenom a measuring 12 mm unchanged. Left adrenal gland is normal. Normal GE junction. No axillary lymphadeno ingrid. Mild thoracic curve. Hypertrophic changes thoracic spine. Small esophageal hiatal hernia. CT/CT lung screening [id number] IMPRESSION: LUNG-RADS: 2-Benign Appearance or Behavior FOLLOW UP: 12 Month: Continue annual screening with LDCT
== END 2022-08-13 09:44 | disposition home or self-care (01) ==
PROVIDERS: PCP Emergency Medicine Emergency Medical Services; Visit Provider Internal Medicine Critical Care Medicine
DX: Z12.2 Encounter for screening for malignant neoplasm of respiratory organs (principal); Z87.891 Personal history of nicotine dependence
CPT/HCPCS: 71271

== ENCOUNTER 2022-10-25 15:06 | Emergency (ER) | payer OTHER, SELFPAY ==
[2022-10-25 15:13] VITALS: PULSE 91; RESP 20; TEMP 36.8; O2SAT 95
--- NOTE | 2022-10-25 15:30 | ED_ITS ---
HPI - Back Pain/Injury General: Chief Complaint: Back Pain/Injury Stated Complaint: lower back pain and urining issues Time Seen by Provider: 10/25/22 15:25 Source: patient Mode of arrival: ambulatory History of Present Illness: 77-year-old male presents emergency room with complaints of back pain radiating into his legs. He has had prior back pain is gotten worse over the last couple of days point he has difficulty walking. Asked about urinary retention or fecal incontinence it does not sound like he has had either. He does have some urinary incontinence but it predated the worsening of the back pain this weekend. At times he does have BPH like sounding symptoms. He has not had fecal incontinence over the weekend. MD elicited complaint: back pain Pertinent past history: prior back pain Onset (ago): minute(s) Timing: constant Severity: moderate Quality: sharp Location: lumbar spine Radiation: left upper leg, right upper leg, left leg below the knee and right leg below the knee Exacerbating factors: walking Relieving factors: other (Straight leg raising improves pain) Associated symptoms: Reports arthralgias, difficulty walking and weakness; Deny abdominal pain, chills, change in bowel habits, dysuria, fatigue, fecal incontinence, fever(s), hematuria, myalgias, nausea, numbness, syncope, tingling/numbness/burning, urinary frequency, urinary urgency or vomiting Review of Systems Const: Denies: fever(s), chills or fatigue ENMT: Denies: throat pain, ear or mastoid pain, nasal discharge or nasal congestion Card: Denies: syncope Resp: Denies: dyspnea, productive cough or non-productive cough GI: Denies: abdominal pain, nausea, vomiting, fecal incontinence or change in bowel habits : Denies: dysuria, urinary urgency or hematuria Skin/Breast: Denies: rash or pruritus Neuro: Reports: difficulty walking PFSH ED PFSH: Medical History Congestive heart failure Coronary artery disease S/P CABG in 1999 & 6-7 stents since that time Hyperlipidemia Hypertension Obstructive sleep apnea Tobacco abuse Surgical History History of cataract surgery Hx of CABG 1999, 1 vessel S/P PTCA (percutaneous transluminal coronary angioplasty) Patient reports 6-7 stents in the past. Last was performed in June 2019 in [place] Family History Daughter Hypertension Son Hypertension Denies family history of Dementia Social History Smoking and tobacco status: former smoker Quit status (tobacco): has quit using tobacco Year quit tobacco: 2019 Former quit date comment: Hx of 1 PPD x 50 Years Smoking risk assessment/counseling performed?: No Alcohol intake: never Counseling given: No Counseling given: No Lives independently: Yes Household members: none Marital status: / service: Yes Current occupational status: retired History of recent travel: No Current gender identity: Male Physical Exam Const: GENERAL APPEARANCE: cooperative and comfortable ORIENTATION/CONSCIOUSNESS: Yes awake, Yes oriented to person, Yes oriented to place and Yes oriented to time HENMT: COMMON NORMALS: normocephalic and atraumatic HEAD & SCALP: normocephalic and atraumatic Resp: COMMON NORMALS: normal respiratory effort, No retractions, No use of accessory muscles and clear to auscultation bilaterally AUSCULTATION: clear to auscultation bilaterally Cardio: COMMON NORMALS: regular rate, regular rhythm and No murmurs present (Cardio) RATE: regular rate RHYTHM: regular rhythm GI: COMMON NORMALS: Soft to palpation and No hepatosplenomegaly present AUSCULTATION: Yes normoactive bowel sounds PALPATION: Yes Soft to palpation, No Tenderness to palpation present (GI), No Guarding due to palpation present (GI) and Yes No hepatosplenomegaly present Extremity: COMMON NORMALS: normal to inspection, capillary refill normal, no clubbing, cyanosis or edema, no calf tenderness and no pedal edema Neuro: SENSORIUM/ORIENTATION: Yes oriented to person, Yes oriented to place and Yes oriented to time SENSORY EXAM: Yes extremities (Normal) MOTOR EXAM: 5/5 motor strength present throughout DEEP TENDON REFLEXES: Right patellar reflex intensity grade: 2+, Left patellar reflex intensity grade: 2+, Right ankle reflex intensity grade: 1+ and Left ankle reflex intensity grade: 1+ OTHER: Straight leg raising negative (patient remarks that straight leg raising relieves his back pain.) Skin: COMMON NORMALS: no rashes or lesions noted GENERAL SKIN EXAM: no rashes or lesions noted Course Vital Signs: Vital signs: Vital Signs Temperature 98.3 F 10/25/22 15:13 Pulse Rate 81 10/25/22 16:35 Respiratory Rate 14 10/25/22 16:35 Blood Pressure 177/82 10/25/22 16:35 Pulse Oximetry 92 10/25/22 16:35 Oxygen Delivery Me thod 10/25/22 16:35 MDM - Back Pain/Injury Medical Decision Making No sign of cauda equina syndrome. He is not having loss of function in his lower extremities straight leg raising actually relieves his back pain. Think he does have some BPH issues but I did from his history that does not seem to be urinary retention related to neurologic causes. Patient is much improved after medication is able ambulate without difficulty. He had reported difficulty with ambulation weakness in his legs at times however is able to demonstrate good steady gait here. Do recommend that he follow-up with his primary care doc you will likely need an MRI at some point as an outpatient. Discussing with his family was concerned that he may have benign intracranial hypertension at times he has weakness his legs other times it is gone he has some urinary incontinence and they have noticed increasing episodes of confusion. No evidence of ventriculomegaly on his CT. He probably does need further work-up as an outpatient for this as well. Patient has 5 of 5 strength in the lower extremities, sensation in the lower extremities normal, with dorsi and plantar flexion and has +2 of 4 patellar tendon reflex and +1/4 Achilles tendon reflex. At this point do not believe he requires emergent MRI based on his exam and his history and he can be discharged home he may need further evaluation which can be completed in the outpatient setting. Medical Records I reviewed the patient's medical records. Labs I reviewed the patient's lab results. 10/25/22 16:27 10/25/22 16:[address] 10/25/22 16:04 IMPRESSION: No intracranial lesion or injury Laboratory Results WBC 8.4 10^3/uL (4.0-10.0) 10/25/22 16:27 RBC 4.33 10^6/uL (4.1-5.3) 10/25/22 16: Hgb 13.0 g/dL (11.7-16.6) 10/25/22 16: Hct 40.1 % (42.0-52.0) L 10/25/22 16: MCV 92.6 fl (80-94) 10/25/22 16: MCH 30.0 pg (28.0-34.0) 10/25/22 16: MCHC 32.4 g/dL (30.0-36.0) 10/25/22 16: RDW 14.5 % (12.1-15.1) 10/25/22 16: Plt Count 248 10^3/cmm (130-400) 10/25/22 16: MPV 11.4 fL (7.4-10.4) H 10/25/22 16: Neut % (Auto) 71.0 % 10/25/22 16: Lymph % (Auto) 11.0 % 10/25/22 16: [place] % (Auto) 16.7 % 10/25/22 16: Eos % (Auto) 0.1 % 10/25/22: Baso % (Auto) 0.5 % 10/25/22: Neut # (Auto) 5.97 10^3/uL (1.8-7.7) 10/25/22 16: Lymph # (Auto) 0.9 10^3/uL (0.8-4.8) 10/25/22 16: [place] # (Auto) 1.4 10^3/uL (0.2-0.9) H 10/25/22 16: Eos # (Auto) 0.0 10^3/uL (0.0-0.8) 10/25/22: Baso # (Auto) 0.0 10^3/uL (0.0-0.1) 10/25/22: Nucleated RBC % (auto) 0 % 10/25/22: Nucleated RBCs # 0.0 /100WBC 10/25/22 16: Sodium 133 mmol/L (136-145) L 10/25/22 16: Potassium 3.0 mmol/L (3.5-5.1) L 10/25/22 16: Chloride 94 mmol/L (98-107) L 10/25/22 16: Carbon Dioxide 25 mmol/L (22-29) 10/25/22 16:27 Anion Gap 17.0 (5-19) 10/25/22 16:27 BUN 15 mg/dL (8-23) 10/25/22 16:27 Creatinine 0.9 mg/dL (0.7-1.2) 10/25/22 16:27 GFR Calculation Not Reportable 10/25/22 16:27 Glucose 107 mg/dL (65-115) 10/25/22 16:27 Calculated Osmolality 277 mOsm/kg (285-295) L 10/25/22 16:27 Calcium 9.4 mg/dL (8.5-10.5) 10/25/22 16:27 Total Bilirubin 1.4 mg/dL (0.15-1.2) H 10/25/22 16:27 AST 44 U/L (0-40) H 10/25/22 16:27 ALT 17 U/L (0-41) 10/25/22 16:27 Alkaline Phosphatase 114 U/L (40-130) 10/25/22 16:27 Total Protein 7.9 g/dL (6.6-8.7) 10/25/22 16:27 Albumin 4.0 g/dL (3.5-5.2) 10/25/22 16: Globulin 3.9 g/dL (1.3-4.6) 10/25/22 16:27 Discharge Plan Discharge Patient Disposition: Home Clinical Impression: Back pain Condition: Stable Prescriptions: New prednisone 20 mg tablet 20 mg PO TID Qty: 15 0RF Rx Instructions: 1 p.o. 3 times daily x3 days, 1 p.o. twice daily x2 days, 1 p.o. daily x2 days No Action lisinopril 40 mg tablet 40 mg PO BID Rx Instructions: medication on va list Stiolto Respimat 2.5-2.5 mcg/actuation mist 2 puff INHALATION DAILY Qty: 4 3RF Lyrica PO furosemide 40 mg tablet 40 mg PO QAM 90 Days Qty: 90 3RF furosemide 20 mg tablet 20 mg PO DAILY Qty: 90 0RF Rx Instructions: Daily at noon. potassium chloride 20 mEq tablet extended release 20 meq PO DAILY 90 Days Qty: 90 3RF carvedilol 25 mg Tablet 25 mg PO BID Rx Instructions: medication on va list sertraline 100 mg Tablet 100 mg PO DAILY Rx Instructions: medication on va list hydralazine 25 mg Tablet 25 mg PO TID Rx Instructions: medication on va list clopidogrel [Plavix] 75 mg Tablet 75 mg PO DAILY Rx Instructions: pt states he is unsure if he is still taking this medication-medication was on pts va list omeprazole 40 mg Capsule,Delayed Release(Dr/Ec) 40 mg PO DAILY Rx Instructions: medication on va list PreserVision AREDS-2 [id number] Capsule 1 tab PO BID ketorolac 0.5 % Drops 1 drp OPHTHALMIC (EYE) QID PRN (Reason: unknown) Rx Instructions: pt states he has this medication but isnt using prednisolone acetate 1 % Drops,Suspension 1 drp OPHTHALMIC (EYE) QID Rx Instructions: pt states he has this medication but isnt using it albuterol sulfate 90 mcg/actuation HFA aerosol inhaler 2 inh INHALATION Q4H PRN (Reason: shortness of breath or wheezing) Qty: 18 0RF Discharge Orders: Discharge ED (Routine); Ordered 10/25/22 Ordered By: Siva Hilliard Referrals: Srinivas Ritchie DO [Primary Care Provider] - Discharge Diet: Usual diet Discharge Activity: Resume usual activity Patient Instructions: Opioid Safety, Pain Management Activity Restrictions/Additional Instructions: You were seen today for back pain. You are also commented about urinary incontinence and several falls. Your exam for cauda equina syndrome was negative. CT of the head to evaluate for benign intracranial hypertension was read as normal. You should have further evaluation for your back and for these other symptoms digital marketing project manager will make arrangements for you to follow-up with a neurologist. Coding Level of Care Code ED Biomass Technician for Seema Fwd Exam Comprehensive
--- NOTE | 2022-10-25 16:04 | CTR_ITS ---
PROCEDURE INFORMATION: Exam: CT Head Without Contrast Exam date and time: 10/25/2022 4:14 PM Age: 77 years old Clinical indication: Other: Ataxia, urinary incontinence, AMS TECHNIQUE: Imaging protocol: Computed tomography of the head without contrast. Radiation optimization: All CT scans at this facility use at least one of these dose optimization techniques: automated exposure control; mA and/or kV adjustment per patient size (includes targeted exams where dose is matched to clinical indication); or iterative reconstruction. COMPARISON: No relevant prior studies available. RADIATION DOSE METRICS: Total DLP (mGy-cm): 1206.08 FINDINGS: Brain: There is age-related volume loss. No evidence of infarct. No hemorrhage or extra-axial collection. No mass. Cerebral ventricles: Ventricular dilatation appears proportionate to volume loss. Paranasal sinuses: Visualized sinuses are unremarkable. No fluid levels. Mastoid air cells: Visualized mastoid air cells are well aerated. Bones/joints: Unremarkable. No acute fracture. Soft tissues: Unremarkable. CT/CT head wo con* [id number] IMPRESSION: No intracranial lesion or injury
[2022-10-25 16:35] VITALS: BP 177/82; PULSE 81; RESP 14; O2SAT 92
[2022-10-25 16:41] LABS: Basophils % 0.5 %; Eosinophils % 0.1 %; Hematocrit 40.1 % (42.0-52.0); Lymphocytes # 0.9 10^3/uL (0.8-4.8); Mean Corpuscular HGB Conc 32.4 g/dL (30.0-36.0); Mean Corpuscular Volume 92.6 fl (80-94); Mean Platelet Volume 11.4 fL (7.4-10.4); Monocytes # 1.4 10^3/uL (0.2-0.9); Monocytes % 16.7 %; Neutrophils # 5.97 10^3/uL (1.8-7.7); Nucleated Red Blood Cells % 0 %; Platelet Count 248 10^3/cmm (130-400); Red Blood Count 4.33 10^6/uL (4.1-5.3); Red Cell Distribution Width 14.5 % (12.1-15.1); White Blood Count 8.4 10^3/uL (4.0-10.0)
[2022-10-25] MEDS: orphenadrine 30 mg/mL Inj 2 mL 60 MG IVP (17:02)
[2022-10-25] MEDS: dexamethasone 10 mg/mL INJ IVP (17:04)
[2022-10-25] MEDS: ketorolac 30 mg/mL INJ IVP (17:07)
[2022-10-25 17:08] LABS: Alanine Aminotransferase 17 U/L (0-41); Alkaline Phosphatase 114 U/L (40-130); Aspartate Amino Transferase 44 U/L (0-40); Blood Urea Nitrogen 15 mg/dL (8-23); Calcium 9.4 mg/dL (8.5-10.5); Carbon Dioxide 25 mmol/L (22-29); Chloride 94 mmol/L (98-107); Creatinine Clr Calc Pharmacy 89.4344; Globulin 3.9 g/dL (1.3-4.6); Glucose 107 mg/dL (65-115); Osmolality Calculated 277 mOsm/kg (285-295); Sodium 133 mmol/L (136-145); Total Bilirubin 1.4 mg/dL (0.15-1.2); Total Protein 7.9 g/dL (6.6-8.7)
--- NOTE | 2022-10-26 11:52 | DCPLANNER ---
Addendum entered by Roya Vega 02/09/23 18:00: Patient had follow up appointment with neurology - patient did attend appointment. Addendum entered by Roya Vega 11/12/22 14:10: Patient has a follow up appointment scheduled for , January 06, 2022 at 2:[address] Redmond at neurology. Clinic will call patient with appointment information. Original Note: general sales manager had message to schedule a follow up appointment for patient with neurology. general sales manager sent patients information to the front office staff at neurology. Patients information will be printed and reviewed. Clinic will call patient with appointment information.
== END 2022-10-25 18:43 | disposition home or self-care (01) ==
PROVIDERS: Emergency Provider Family Medicine; PCP Emergency Medicine Emergency Medical Services
DX: M54.50 Low back pain, unspecified (principal); R32 Unspecified urinary incontinence; R53.1 Weakness; R41.82 Altered mental status, unspecified; R26.2 Difficulty in walking, not elsewhere classified; M79.604 Pain in right leg; M79.605 Pain in left leg
CPT/HCPCS: 51798; 70450; 80053; 85025; 96374; 96375; 99285; J1100; J1885; J2360

== ENCOUNTER → 2023-01-06 12:23 | Outpatient (BNVA) | payer OTHER, SELFPAY | PROVIDERS: PCP Nurse Practitioner; Referring Provider Family Medicine; Visit Provider Specialist | DX: G31.84 Mild cognitive impairment of uncertain or unknown etiology (principal); I50.9 Heart failure, unspecified; I25.10 Atherosclerotic heart disease of native coronary artery without angina pectoris; J43.9 Emphysema, unspecified; R26.89 Other abnormalities of gait and mobility; M16.0 Bilateral primary osteoarthritis of hip; M17.0 Bilateral primary osteoarthritis of knee; Z87.891 Personal history of nicotine dependence | CPT/HCPCS: 99205 ==

== ENCOUNTER → 2024-09-12 09:12 | Outpatient (BNVA) | payer OTHER, SELFPAY | PROVIDERS: PCP Nurse Practitioner; Visit Provider Podiatrist Foot & Ankle Surgery | DX: M79.671 Pain in right foot (principal); M79.672 Pain in left foot; M21.611 Bunion of right foot; M21.612 Bunion of left foot; M21.41 Flat foot [pes planus] (acquired), right foot; M21.42 Flat foot [pes planus] (acquired), left foot; M20.41 Other hammer toe(s) (acquired), right foot; M20.42 Other hammer toe(s) (acquired), left foot; M19.071 Primary osteoarthritis, right ankle and foot; M19.072 Primary osteoarthritis, left ankle and foot; B35.9 Dermatophytosis, unspecified | CPT/HCPCS: 73630; 99204 ==

== ENCOUNTER → 2024-12-18 10:04 | Outpatient (BNVA) | payer OTHER, SELFPAY | PROVIDERS: PCP Nurse Practitioner; Visit Provider Podiatrist Foot & Ankle Surgery | DX: M21.611 Bunion of right foot; M21.612 Bunion of left foot; M21.41 Flat foot [pes planus] (acquired), right foot; M21.42 Flat foot [pes planus] (acquired), left foot; M20.41 Other hammer toe(s) (acquired), right foot; M20.42 Other hammer toe(s) (acquired), left foot; M19.071 Primary osteoarthritis, right ankle and foot; M19.072 Primary osteoarthritis, left ankle and foot; L24.9 Irritant contact dermatitis, unspecified cause | CPT/HCPCS: 99213 ==

== ENCOUNTER → 2025-03-12 13:17 | Outpatient (BNVA) | payer OTHER, SELFPAY | PROVIDERS: PCP Nurse Practitioner; Visit Provider Podiatrist Foot & Ankle Surgery | DX: M79.671 Pain in right foot (principal); M79.672 Pain in left foot; M21.611 Bunion of right foot; M21.612 Bunion of left foot; M21.41 Flat foot [pes planus] (acquired), right foot; M21.42 Flat foot [pes planus] (acquired), left foot; M20.41 Other hammer toe(s) (acquired), right foot; M20.42 Other hammer toe(s) (acquired), left foot; M19.071 Primary osteoarthritis, right ankle and foot; M19.072 Primary osteoarthritis, left ankle and foot; M79.673 Pain in unspecified foot; L24.9 Irritant contact dermatitis, unspecified cause | CPT/HCPCS: 99213 ==